=== PATIENT | female | born 1985 | race Caucasian/White ===

== ENCOUNTER → 2022-01-01 | Outpatient (CLI) | payer OTHER, SELFPAY | END | disposition home or self-care (01) | LOC: LABSPEC 14:13 | PROVIDERS: Visit Provider Obstetrics & Gynecology | DX: Z03.818 Encounter for observation for suspected exposure to other biological agents ruled out (principal) | CPT/HCPCS: 87635; U0003; U0005 ==

== ENCOUNTER 2022-01-06 08:50 | Inpatient (IN) | payer OTHER, SELFPAY ==
--- NOTE | 2022-01-05 11:36 | HP.PCM_ITS ---
History and Physical Date of Admission: 01/06/22 ACOG ANTEPARTUM RECORD - HISTORY AND PHYSICAL (01/05/2022) Name: JOSHUA LOPEZ History of this : This is a 36 year old [id number] presents at 39weeks gestation. OB Physician: Manan Morrow MD [place]'s Physician: PED LIBRARY ATTENDANT ...................................................................... : 1985 Age: 36 Address: [address] [place] [address] Phone: (h) [phone] ([phone] Insurance Carrier: [facility] [id number] Emergency Contact: DI LOPEZ [phone] ...................................................................... Final JADE: 01/13/22 By Ultrasound: 9 weeks 2 days PARITY: (G-Total Pregnancies P-Fullterm,Premature,Induced AB,Spont AB, Ectopics, Multiple,Living) JADE CONFIRMATION: By LMP: 04/08/21 Final JADE: 01/13/22 OB PROBLEM LIST: AMA - [id number] drawn. Carrier screening declined , office class encouraged Had Tdap vaccine Hx of depression/anxiety, past counseling and medications New FOB, this is his first baby One hour PG 160; declines 3 hour; will treat as presumptive GDM. Diabetic education. Prior --plan repeat with BPS Son has high functioning Autism Vaccinated for Covid ALLERGIES: No Known Allergies MEDICATIONS: ondansetron HCl 8 mg tablet take 1 tablet by mouth q 6 hrs prn nausea SOCIAL HISTORY: Smoking - Never Alcohol Use - denies drinking Diet - no special diet Lifestyle - Exercise - very active Employer - [employer] Job Description - [employer] Illicit Drug Use - denies use of street drugs Sexual Activity - [employer] Residence - owns a home Place of - [place], [place] Hours Worked - 40 hours per week Spouse-Sig Other Name - Di Lopez Spouse-Sig Other Occupation - Sale @ [employer] Spouse-Sig Other Phone No - [phone] Children Name(s) - Ortega Hendrix PRIOR DELIVERY HISTORY DEL DATE GEST LAB WT LB WT OZ TYPE ANES LABOR TX Feb 10 39 [phone] 15 C-Sec Spinal No ANTEPARTUM FLOW CHART VISIT GE RTC FU F F TN U U DATE WK MD WKS HT PN HR M SS BP ED WT TN GL D EF ST __ ____ ___ __ __ ___ __ __ __ ___ __ __ __ ___ __ December JMW 1 38 V + + 120/86 1+ 264 - - Nov JMW 1 37 + + 114/82 1+ 261 tr - Nov JMW 1 37 + + 120/68 sl 257 tr - ft hi Nov JMW 2 34 + + 130/78 sl 255 tr - 17 Nov 28 JMW 3 31 + + 130/80 sl 253 ne ne 23 Oct 28 JMW 3 28 + + 136/84 sl 252 - - Sep 22 JMW 4 23 + + 134/80 sl 239 - - Aug 18 JMW 4 20 + ? 120/82 235 tr - Jul 13 JMW 4 + 112/90 230 - ANTEPARTUM NOTE(S): Jan 01 2022: Headache, see note Dec 26 2021: Good FM Dec 19 2021: reactive NST Dec 05 2021: doing well Nov 14 2021: BS control good, Doing Well and Good FM Oct 23 2021: doing well, One Hr PG today Sep 18 2021: Good FM and US OK Aug 21 2021: comp u/s today Jul 10 2021: occ quickening, wants maternity 21 COMPREHENSIVE ANTEPARTUM NOTE(S): Jan 01 2022: Joshua is here at 38 w 2 d for her NST, followed by her Pre-Op appointment with Dr. Morrow. Blood sugars copied for review. She states that she is tired, and I've had a headache the last day or so. Headache is over her right eye and part of her forehead on right side. She states that Tylenol helps headache, but that it comes back after Tylenol has worn off. She reports that she has had headac Dec 31 2021: H taken to OB. tkg Dec 26 2021: Joshua is here for her NST at 37 w 3 d, she will see Dr. Morrow for a PNV after NST. She states that she is feeling tired, and ready to have this baby. She reports that she feels FM mostly at night. She denies spotting/LoF. 1+ non-pitting edema noted below knees, more on the right side. Her hands show slight edema. Encouraged to increase water intake, and resting when she gets home. She feels o Dec 19 2021: Joshua is here for visit. Relates that she has only felt 1 mvmt since 5 am this morning. NST done with active FM. GBS and LARC today. Dec 05 2021: Reviewed FM, discomforts. Recommend Tdap vaccine. LMT Nov 01 2021: Joshua is here for diabetic teaching for GDM at 29 w 4 d. She states that she is feeling good FM. She brought her glucometer/lancets/test strips with her today. She states that she is very emotional about GDM diagnosis, and has many questions. Questions answered and reassurance given. She is traveling to [place] for 5 days, and inquires about taking her blood sugar testing supplies on the plane, Oct 23 2021: Joshua is here for PNV 28w2d good FM sl Edema. no concerns today. 1hr GTT today. BR Sep 18 2021: Presents here today for PNV with Selvin. Good FM and Glucola/Instructions given. SALLY Aug 21 2021: Comp u/s today. She does ask questions about her age and risk factors. Has read a bit about complications. Reassured we do see many women in her age range who do very well. Further discussion with Dr PAEZ. LMT Jul 12 2021: NOB TELEHEALTH VISIT, 30 MINUTE DURATION. Joshua is a 35 year old with an JADE of 01/13/2022, current GA is 13 w 3 d. She resides with her , Di, and Ortega, her 8 year old son from a prior relationship. This is Di's first child, and she states that he is very excited. Joshua delivered her son by C/S for breech presentation. Past history updated. She plans to deliver b Jul 10 2021: Joshua here for her 13 week PNV. Pt doing well with no concerns or complaints. Medications and allergy's reviewed. BP is 112/90 today. She is concerned about the bottom number. Jun 12 2021: Joshua her for her missed menses. 35 year old. Here with her spouse. LMP 8/21. 9 weeks 2 days. No spotting. Nausea and breast tenderness. PHQ-2 score of 2. Non smoker. Medications and allergy added. CM Jun 12 2021: ok REVIEW OF SYSTEMS: GENERAL - Denies fever, or chills SKIN - Denies rash, new skin lesions, or change in moles EYES - Denies blurred vision, or change in visual acuity EARS - Denies ear pain, or difficulty hearing NOSE - Denies nasal congestion, discharge, or bleeding MOUTH - Denies sore throat, or difficulty swallowing NECK - Denies pain or swelling RESPIRATORY - Denies shortness of breath, cough, wheezing CARDIOVASCULAR - Denies palpitations, chest pain, orthopnea, PND, peripheral edema, syncope or claudication GASTROINTESTINAL - Denies nausea, vomiting, diarrhea, constipation, Denies abdominal pain, melena and or bright red blood GENITOURINARY - Denies dysuria, frequency of urination, urgency, or hesitancy MUSCULOSKELETAL - Denies joint or muscle pain, or back pain NEUROLOGICAL - Denies localized numbness, weakness, or tingling PSYCHIATRIC - Denies depression, anxiety, substance abuse or suicide attempts ENDOCRINE - Denies heat or cold intolerance, weight loss or gain, increasing thirst HEMATO-IMMUNOLOGIC - Denies easy bruising, bleeding, oral ulcerations or recurrent infections GENETICS SCREENING: Age 35+ years: Yes Thalassemia: No Neural Tube Defect: No Down Syndrome: No RENATO-SACHS: No Sickle Cell Disease: No Hemophilia: No Musc. Dystrophy: No Cystic Fibrosis: No-declines screening [place] Chorea: No Mental Retardation: No Fragile X: No Other genetic: No Other defects: No SABs/still births: No Drugs since LMP: No INFECTION HISTORY: High risk AIDS: No High risk Hepatitis: No Exposed to TB: No Exposed to Herpes: No Rash/viral illness since LMP: No History of STD: No MENSTRUAL HISTORY: PAST SUMMARY: PARITY: 1. Total Pregnancies............ 2 2. Full Term Pregnancies........ 1 3. Premature.................... 0 4. Abortions - Induced.......... 0 5. Abortions - Spontaneous...... 0 6. Ectopics..................... 0 7. Multiple Births.............. 0 8. Living Children.............. 1 PAST #1: Date of :.................. 02[birth year]03[birth year] Gestation Weeks:................ 39 Length of labor(hours):......... 0 Sex:............................ M Weight-lbs:............... 6 Weight-oz:................ 15 Type of Delivery:............... C-Sect Type of Anesthesia:............. Spinal Place of Delivery:.............. [place] Treatment of Labor?:.... No Comment: SROM, BREECH PHYSICAL EXAMINATION General Appearence: 36 yo female in no acute distress Vital Signs: AF, VSS Heart: RRR without rubs or gallops Lungs: CTA x 2 Breasts: deferred Abdomen: gravid Pelvis: Cervix: Presentation: cephalic Station: Fetus: Size: AGA Movement: present Heart: present LAB TEST(S) ORDERED SINCE:04/18/21 07/15/2021 [id number] PLUS CORE 06/19/2021 WRITTEN AUTHORIZATION 06/19/2021 INTERPRETATION: 06/19/2021 CBC/D/PLT+RPR+UA+RH+ABO+RUB... 06/15/2021 IGP,RFX APTIMA HPV ALL PTH 06/15/2021 CHLAMYDIA/GC AMPLIFICATION 01/01/2022 COVID 19, AUDIE WCH(RT COLLECT) 12/23/2021 STREP GP B CULTURE 10/25/2021 GEST. DIABETES 1-HR SCREEN 10/25/2021 CBC WITH DIFFERENTIAL/PLATELET == ==== Order Observation Description Value Ref_Range A* Site == ==== COVID 19, AUDIE NOTE RAMIREZ COVID 19, AUDIE COVID-19,AUDIE Not Detected Not Detect ML Normal Reference Range: Not Detected Method:(RT-PCR) real-time reverse transcriptase PCR [employer]ical Instrument *The Food and Drug Administration (FDA) has issued an Emergency Use Authorization (EAU) for the [employer] SARS-CoV-2 Assay for the rapid detection of the virus that causes COVID-19. This test has been validated, but the FDAs independent review of this validation is pending. *Negative results do not preclude infection and should not be used as the sole basis for treatment or patient management. Optimum specimen types and timing for peak viral levels during infections caused by SARS-CoV-2 have not been determined. Collection of multiple specimens from the same patient may be necessary to detect the virus. The possibility of a false negative result should be considered if the patient has clinical presentation or has had recent exposure. STREP GP B CULT STREP GP B CULTURE Negative Negative LC_CB Centers for Disease Control and Prevention (CDC) and [place] Congress of Obstetricians and Gynecologists (ACOG) guidelines for prevention of group B streptococcal (GBS) disease specify co-collection of a vaginal and rectal swab specimen to maximize sensitivity of GBS detection. Per the CDC and ACOG, swabbing both the lower vagina and rectum substantially increases the yield of detection compared with sampling the vagina alone. . Penicillin G, ampicillin, or cefazolin are indicated for intrapartum prophylaxis of GBS colonization. Reflex susceptibility testing should be performed prior to use of clindamycin only on GBS isolates from penicillin-allergic women who are considered a high risk for anaphylaxis. Treatment with vancomycin without additional testing is warranted if resistance to clindamycin is noted. CBC WITH DIFFER WBC 7.4 x10E3/uL 3.4-10.8 LC_CB CBC WITH DIFFER RBC 4.05 x10E6/uL 3.77-5.28 LC_CB CBC WITH DIFFER HEMOGLOBIN 12.4 g/dL 11.1-15.9 LC_CB CBC WITH DIFFER HEMATOCRIT 36.3 % 34.0-46.6 LC_CB CBC WITH DIFFER MCV 90 fL 79-97 LC_CB CBC WITH DIFFER MCH 30.6 pg 26.6-33.0 LC_CB CBC WITH DIFFER MCHC 34.2 g/dL 31.5-35.7 LC_CB CBC WITH DIFFER RDW 12.9 % 11.7-15.4 LC_CB CBC WITH DIFFER PLATELETS 312 x10E3/uL 150-450 LC_CB CBC WITH DIFFER NEUTROPHILS 61 % Not Estab. LC_CB CBC WITH DIFFER LYMPHS 25 % Not Estab. LC_CB CBC WITH DIFFER MONOCYTES 9 % Not Estab. LC_CB CBC WITH DIFFER EOS 2 % Not Estab. LC_CB CBC WITH DIFFER BASOS 1 % Not Estab. LC_CB CBC WITH DIFFER IMMATURE CELLS LC_CB CBC WITH DIFFER NEUTROPHILS (ABSOLUTE) 4.5 x10E3/uL 1.4-7.0 LC_CB CBC WITH DIFFER LYMPHS (ABSOLUTE) 1.8 x10E3/uL 0.7-3.1 LC_CB CBC WITH DIFFER MONOCYTES(ABSOLUTE) 0.7 x10E3/uL 0.1-0.9 LC_CB CBC WITH DIFFER EOS (ABSOLUTE) 0.2 x10E3/uL 0.0-0.4 LC_CB CBC WITH DIFFER BASO (ABSOLUTE) 0.1 x10E3/uL 0.0-0.2 LC_CB CBC WITH DIFFER IMMATURE GRANULOCYTES 2 % Not Estab. LC_CB CBC WITH DIFFER IMMATURE GRANS (ABS) 0.2 x10E3/uL 0.0-0.1 H LC_CB (An elevated percentage of Immature Granulocytes has not been found to be clinically significant as a sole clinical predictor of disease. Does NOT include bands or blast cells. associated physiological leukocytosis may also show increased immature granulocytes without clinical significance.) CBC WITH DIFFER NRBC LC_CB CBC WITH DIFFER HEMATOLOGY COMMENTS: LC_CB GEST. DIABETES GESTATIONAL DIABETES SCR 160 mg/dL 65-139 H LC_CB According to ADA, a glucose threshold of >139 mg/dL after 50-gram load identifies approximately 80% of women with gestational diabetes mellitus, while the sensitivity is further increased to approximately 90% by a threshold of >129 mg/dL. [id number] PLUS GESTATION [place] LC_SEQCA [id number] PLUS FRACTION 8% LC_SEQCA [id number] PLUS GESTATIONAL AGE > OR = 9 Yes LC_SEQCA [id number] PLUS TEST RESULT Negative LC_SEQCA [id number] PLUS SUPERVISOR MIXING COMMENTS LC_SEQCA This specimen showed an expected representation of chromosome 21, 18 and 13 material. Clinical correlation is suggested. [id number] PLUS APPROVED BY LC_SEQCA Alber Overton MD, PhD, Director, [employer] [id number] PLUS TRISOMY 21 (DOWN SYNDROM Negative LC_SEQCA [id number] PLUS TRISOMY 18 (GASTON SYND Negative LC_SEQCA [id number] PLUS TRISOMY 13 (PATAU SYNDRO Negative LC_SEQCA [id number] PLUS SEX LC_SEQCA Consistent with Male [id number] PLUS NEGATIVE PREDICTIVE VALU Note LC_SEQCA The Negative Predictive Value (NPV) for trisomy 21, 18, and 13 is greater than 99%. The NPV for SCA and ESS cannot be calculated as SCA and ESS are only reported when an abnormality is detected. [id number] PLUS POSITIVE PREDICTIVE VALU N/A LC_SEQCA [id number] PLUS ABOUT THE TEST LC_SEQCA The MaterniT(R) 21 PLUS laboratory-developed test (LDT) analyzes circulating cell-free DNA from a maternal blood sample. The test is indicated for use in women with increased risk for chromosomal aneuploidy. Validation data on twin pregnancies is limited and the ability of this test to detect aneuploidy in a triplet has not yet been validated. [id number] PLUS TEST METHOD LC_SEQCA Circulating cell-free DNA was purified from the plasma component of maternal blood. The extracted DNA was then converted into a genomic DNA library for aneuploidy analysis of chromosomes 21, 18, and 13 via next generation sequencing.[1] Optional findings based on the test order include sex chromosome aneuploidy (SCA)[2], and enhanced sequencing series (ESS)[3], which will only be reported on as an additional finding when an abnormality is detected. SCA testing includes information on X and Y representation, while ESS testing includes deletions in selected regions (22q, 15q, 11q, 8q, 5p, 4p, 1p) and trisomy of chromosomes 16 and 22. [id number] PLUS PERFORMANCE LC_SEQCA The performance characteristics of the MaterniT(R) 21 PLUS laboratory-developed test (LDT) have been determined in a clinical validation study with women at increased risk for chromosomal aneuploidy.[1],[2],[3],[4] [id number] PLUS PERFORMANCE CHARACTERIST Note LC_SEQCA ! Y-Chromosome ( Sex) ! Accuracy: 99.4% ! ! ! ! Region (associated syndrome) ! Est. Sens# ! Est. Spec ! ! ! ! Trisomy 21 (Down Syndrome) ! 99.1% ! 99.9% ! ! ! ! Trisomy 18 (Gaston Syndrome) ! >99.9% ! 99.6% ! ! ! ! Trisomy 13 (Patau Syndrome) ! 91.7% ! 99.7% ! ! ! ! Sex Chromosome Aneuploidies## ! 96.2% ! 99.7% ! ! ! * As reported in [facility] database [id number] [[email or web address] ] # Estimated Sensitivity. Sensitivity estimated across the observed size distribution of each syndrome [per [facility] database nstd37] and across the range of fractions observed in routine clinical NIPT. Actual sensitivity can also be influenced by other factors such as the size of the event, total sequence counts, amplification bias, or sequence bias. ## [place] gestation only. [id number] PLUS LIMITATIONS OF THE TEST LC_SEQCA While the results of these tests are highly accurate, discordant results, including inaccurate sex prediction, may occur due to placental, maternal, or mosaicism or neoplasm; vanishing twin; prior maternal organ transplant; or other causes. Sex chromosomal aneuploidies are not reportable for known multiple gestations. These tests are screening tests and not diagnostic; they do not replace the accuracy and precision of diagnosis with CVS or amniocentesis. A patient with a positive test result should be referred for genetic counseling and offered invasive diagnosis for confirmation of test results.[5] A negative result does not ensure an unaffected nor does it exclude the possibility of other chromosomal abnormalities or defects which are not a part of these tests. An uninformative result may be reported, the causes of which may include, but are not limited to, insufficient sequencing coverage, noise or artifacts in the region, amplification or sequencing bias, or insufficient fraction. These tests are not intended to identify pregnancies at risk for neural tube defects or ventral wall defects. Testing for whole chromosome abnormalities (including sex chromosomes) and for subchromosomal abnormalities could lead to the potential discovery of both and maternal genomic abnormalities that could have major, minor, or no, clinical significance. Evaluating the significance of a positive or a non-reportable result may involve both invasive testing and additional studies on the mother. Such investigations may lead to a diagnosis of maternal chromosomal or subchromosomal abnormalities, which on occasion may be associated with benign or malignant maternal neoplasms. These tests may not accurately identify triploidy, balanced rearrangements, or the precise location of subchromosomal duplications or deletions; these may be detected by diagnosis with CVS or amniocentesis. The ability to report results may be impacted by maternal BMI, maternal weight, maternal systemic lupus erythematosus (SLE) and/or by certain pharmaceutical agents such as low molecular weight heparin (for example: Lovenox(R), Xaparin(R), Clexane(R) and Fragmin(R)). The results of this testing, including the benefits and limitations, should be discussed with a qualified healthcare provider. management decisions, including termination of the , should not be based on the results of these tests alone. The healthcare provider is responsible for the use of this information in the management of their patient. [id number] PLUS NOTE LC_SEQCA This test was developed and its performance characteristics determined by [facility]. It has not been cleared or approved by the Food and Drug Administration. This laboratory is certified under the Clinical Laboratory Improvement Amendments (CLIA) as qualified to perform high complexity clinical laboratory testing and accredited by the College of [place] Pathologists (CAP). If there is future clinical need for adding MaterniT GENOME testing, this specimen will be available until term. [facility] samples will not be retained beyond 60 days. [facility] patients will have to send a new sample for re-sequencing ([facility] Test Code: 252961). [id number] PLUS REFERENCES LC_SEQCA 1. Aldo RODRIGUEZ, et al. [place] Med. 2012;14(3):296-305. 2. Guerline ROJAS, et al. Prenat Diag. 2013;33(6):591-597. 3. Fareed C, et al. Clin Chem. 2015 Apr;61(4):608-616. 4. Aldo RODRIGUEZ, et al. [place] Med. 2011;13(11):913-920. 5. ACOG/SMFM Joint Committee Opinion No. 545, Jul 2012. [id number] PLUS PDF . LC_SEQCA CBC/D/PLT+RPR+U TSH 1.660 uIU/mL 0.450-4.500 LC_CB Reference Interval : First Trimester 0.100 - 4.000 Second Trimester 0.200 - 4.000 Third Trimester 0.300 - 4.000 . Non- Adult 0.450 - 4.500 CBC/D/PLT+RPR+U HBSAG SCREEN Negative Negative LC_CB CBC/D/PLT+RPR+U HCV AB <0.1 s/co ratio 0.0-0.9 LC_CB CBC/D/PLT+RPR+U RPR Non Reactive Non Reactive LC_CB CBC/D/PLT+RPR+U RUBELLA ANTIBODIES, IGG 20.70 index Immune >0.99 LC_CB Non-immune <0.90 Equivocal 0.90 - 0.99 Immune >0.99 CBC/D/PLT+RPR+U ABO GROUPING O LC_CB CBC/D/PLT+RPR+U RH FACTOR Positive LC_CB Please note: Prior records for this patient's ABO / Rh type are not available for additional verification. CBC/D/PLT+RPR+U ANTIBODY SCREEN Negative Negative LC_CB CBC/D/PLT+RPR+U HIV SCREEN 4TH GENERATIO Non Reactive Non Reactive LC_CB CBC/D/PLT+RPR+U WBC 7.8 x10E3/uL 3.4-10.8 LC_CB CBC/D/PLT+RPR+U RBC 4.79 x10E6/uL 3.77-5.28 LC_CB CBC/D/PLT+RPR+U HEMOGLOBIN 14.1 g/dL 11.1-15.9 LC_CB CBC/D/PLT+RPR+U HEMATOCRIT 44.5 % 34.0-46.6 LC_CB CBC/D/PLT+RPR+U MCV 93 fL 79-97 LC_CB CBC/D/PLT+RPR+U MCH 29.4 pg 26.6-33.0 LC_CB CBC/D/PLT+RPR+U MCHC 31.7 g/dL 31.5-35.7 LC_CB CBC/D/PLT+RPR+U RDW 13.1 % 11.7-15.4 LC_CB CBC/D/PLT+RPR+U PLATELETS 347 x10E3/uL 150-450 LC_CB CBC/D/PLT+RPR+U NEUTROPHILS 66 % Not Estab. LC_CB CBC/D/PLT+RPR+U LYMPHS 26 % Not Estab. LC_CB CBC/D/PLT+RPR+U MONOCYTES 7 % Not Estab. LC_CB CBC/D/PLT+RPR+U EOS 1 % Not Estab. LC_CB CBC/D/PLT+RPR+U BASOS 0 % Not Estab. LC_CB CBC/D/PLT+RPR+U IMMATURE CELLS LC_CB CBC/D/PLT+RPR+U NEUTROPHILS (ABSOLUTE) 5.1 x10E3/uL 1.4-7.0 LC_CB CBC/D/PLT+RPR+U LYMPHS (ABSOLUTE) 2.1 x10E3/uL 0.7-3.1 LC_CB CBC/D/PLT+RPR+U MONOCYTES(ABSOLUTE) 0.5 x10E3/uL 0.1-0.9 LC_CB CBC/D/PLT+RPR+U EOS (ABSOLUTE) 0.1 x10E3/uL 0.0-0.4 LC_CB CBC/D/PLT+RPR+U BASO (ABSOLUTE) 0.0 x10E3/uL 0.0-0.2 LC_CB CBC/D/PLT+RPR+U IMMATURE GRANULOCYTES 0 % Not Estab. LC_CB CBC/D/PLT+RPR+U IMMATURE GRANS (ABS) 0.0 x10E3/uL 0.0-0.1 LC_CB CBC/D/PLT+RPR+U NRBC LC_CB CBC/D/PLT+RPR+U HEMATOLOGY COMMENTS: LC_CB CBC/D/PLT+RPR+U SPECIFIC GRAVITY 1.008 1.005-1.030 LC_CB CBC/D/PLT+RPR+U PH 6.0 5.0-7.5 LC_CB CBC/D/PLT+RPR+U URINE-COLOR Yellow Yellow LC_CB CBC/D/PLT+RPR+U APPEARANCE Clear Clear LC_CB CBC/D/PLT+RPR+U WBC ESTERASE Negative Negative LC_CB CBC/D/PLT+RPR+U PROTEIN Negative Negative/Trace LC_CB CBC/D/PLT+RPR+U GLUCOSE Negative Negative LC_CB CBC/D/PLT+RPR+U KETONES 2+ Negative A LC_CB CBC/D/PLT+RPR+U OCCULT BLOOD Negative Negative LC_CB CBC/D/PLT+RPR+U BILIRUBIN Negative Negative LC_CB CBC/D/PLT+RPR+U UROBILINOGEN,SEMI-QN 0.2 mg/dL 0.2-1.0 LC_CB CBC/D/PLT+RPR+U NITRITE, URINE Negative Negative LC_CB CBC/D/PLT+RPR+U MICROSCOPIC EXAMINATION LC_CB Microscopic not indicated and not performed. CBC/D/PLT+RPR+U URINE CULTURE, ROUTINE Final report A LC_CB CBC/D/PLT+RPR+U RESULT 1 Escherichia coli A LC_CB Cefazolin <=4 ug/mL Cefazolin with an JUSTIN <=16 predicts susceptibility to the oral agents cefaclor, cefdinir, cefpodoxime, cefprozil, cefuroxime, cephalexin, and loracarbef when used for therapy of uncomplicated urinary tract infections due to E. coli, Klebsiella pneumoniae, and Proteus mirabilis. Greater than 100,000 colony forming units per mL CBC/D/PLT+RPR+U ANTIMICROBIAL SUSCEPTIBI LC_CB S = Susceptible; I = Intermediate; R = Resistant P = Positive; N = Negative MICS are expressed in micrograms per mL Antibiotic RSLT#1 RSLT#2 RSLT#3 RSLT#4 Amoxicillin/Clavulanic Acid I Ampicillin R Cefepime S Ceftriaxone S Cefuroxime S Ciprofloxacin S Ertapenem S Gentamicin S Imipenem S Levofloxacin S Meropenem S Nitrofurantoin S Piperacillin/Tazobactam S Tetracycline S Tobramycin S Trimethoprim/Sulfa S INTERPRETATION: INTERPRETATION: LC_CB Negative Not infected with HCV, unless recent infection is suspected or other evidence exists to indicate HCV infection. WRITTEN AUTHORI WRITTEN AUTHORIZATION LC_CB Written Authorization Received. Authorization received from ORIGINAL ORDER 06-13-2021 Logged by Maci Fowler IGP,RFX APTIMA DIAGNOSIS: LC_WB NEGATIVE FOR INTRAEPITHELIAL LESION OR MALIGNANCY. IGP,RFX APTIMA SPECIMEN ADEQUACY: LC_WB Satisfactory for evaluation. Endocervical and/or squamous metaplastic cells (endocervical component) are present. IGP,RFX APTIMA CLINICIAN PROVIDED ICD10 LC_WB Z12.4 Z11.3 IGP,RFX APTIMA PERFORMED BY: LC_WB Bekah Kaur, Certified Prosthetist/Orthotist (ASCP) IGP,RFX APTIMA . . LC_WB IGP,RFX APTIMA NOTE: LC_WB The Pap smear is a screening test designed to aid in the detection of premalignant and malignant conditions of the uterine cervix. It is not a diagnostic procedure and should not be used as the sole means of detecting cervical cancer. Both false-positive and false-negative reports do occur. . IGP,RFX APTIMA TEST METHODOLOGY: LC_WB This liquid based ThinPrep(R) pap test was screened with the use of an image guided system. IGP,RFX APTIMA . LC_WB The HPV DNA reflex criteria were not met with this specimen result therefore, no HPV testing was performed. . CHLAMYDIA/GC AM CHLAMYDIA TRACHOMATIS, N Negative Negative LC_=G CHLAMYDIA/GC AM NEISSERIA GONORRHOEAE, N Negative Negative LC_=G Source.............Cervix;Endocervix LMP / Prev Treat...AAQ=[id number] Other.............. No. of containers..01 ThinPrep Vial No. of containers..01 Aptima Vaginal Swab ([place] Label) == ==== Impression /Plan: 30weeks gestation intrauterine for repeat C- section. Preparations in progress for delivery.
[2022-01-06] VITALS (19 sets, daily range): BP systolic 101–147; BP diastolic 46–83; PULSE 66–100; RESP 14–18; TEMP 35.9–36.8; O2SAT 95–100; BMI 45.6
--- NOTE | 2022-01-06 | FALS_PTH ---
PATIENT: JOSHUA MENESES LOC: [facility] U#:[id number] AGE/SX: 36/F ROOM: WP007 RE01/06/[address]: Dr. Manan Morrow MD : 1985 BED: 1 DIS: 01/09/2022 SPEC #: [id number] RECD: 01/06/22 13:37 STATUS: JANICE WEIR #: [id number] ANETA: 01/06/22 00:[address]: Manan Morrow DEPT: SURGICAL PATHOLOGY RECD BY: Dudley Marie Tissues: Fallopian tube Procedures: Surgery Specimen Level II HEADER OPERATION: Tubal ligation PRE-OP DIAGNOSIS: Sterilization TISSUE SUBMITTED: Fallopian tubes, right side with suture MICROSCOPIC DIAGNOSIS Bilateral fallopian tubes, salpingectomy: Bilateral fallopian tubes, no pathologic diagnosis. See comment. JAUN:ladan 01/08/2022 COMMENT Focal decidual changes are noted on the serosal surface left fallopian tube. MICROSCOPIC DESCRIPTION Slides are reviewed. GROSS DESCRIPTION Received in fixative is one container labeled with the patient's name and designated bilateral fallopian tubes, suture in right. The specimen consists of bilateral fallopian tubes including fimbrial ends. The right fallopian tube measures 9 cm in length and 0.5 cm in diameter and the left fallopian tube measures 8 cm in length and up to 1 cm in diameter. Sections reveal unremarkable cut surfaces. Claims Associate sections are submitted in two cassettes as follows: 1 ? right fallopian tube, 2 ? left fallopian tube. / SJ:rg 01/07/2022 TC:4 CPT: 00247 x2
[2022-01-06] MEDS: Lactated Ringers 1,000 ML 999 ML IV (09:28)
[2022-01-06 09:30] LABS: Bedside Glucose 85 mg/dL (74-106)
[2022-01-06 09:37] LABS: Absolute Neutrophil Count 4.6 X10^3/uL (2.0-7.7); Basophil# 0.03 X10^3/uL; Basophil% 0.4 % (0-1); Eosinophil# 0.18 X10^3/uL; Eosinophils% 2.4 % (0-5); Hematocrit 39.2 % (37-47); Lymphocyte % 25.7 % (19-41); Mean Corp Hgb Conc 33.2 g/dL (32-36); Mean Corpuscular Volume 90.3 fL (81-99); Monocyte# 0.63 X10^3/uL; Monocyte% 8.5 % (0-10); NRBC Flagged by Analyzer 0 % (0-5); Neutrophil # 4.59 X10^3/uL (2.7-7.7); Neutrophil % 62.3 % (47-70); Platelet Count 246 K/mm3 (150-450); RBC Distribution Width CV 14.3 % (11.6-14.6); RBC Distribution Width SD 46.6 fl (35.1-43.9); Red Blood Count 4.34 M/mm3 (4.2-5.4); White Blood Count 7.4 K/mm3 (4.4-11.0)
[2022-01-06] MEDS: Lactated Ringers 1,000 ML 150 ML IV (10:20)
[2022-01-06] MEDS: Acetaminophen 500 MG Tablet 1000 MG PO ×3 (10:21→22:26)
[2022-01-06] MEDS: Sodium Citrate/Citric Acid 30 ML UDC PO (10:28)
--- NOTE | 2022-01-06 11:04 | OP.PCM_ITS ---
Maternal Data Information Final JADE: 01/13/22 Final JADE Source: US <20 weeks Gestational age: 39 weeks 0-day gestation Details Operative Information Date of Procedure: 01/06/22 Pre-Operative Diagnosis: Prior Section, Desires Permanent Sterilization Post-Operative Diagnosis: Prior Section, Desires Permanent Sterilization Classification: Scheduled Procedure Type: low transverse (And bilateral salpingectomy) choir teacher #1: Gissell Che Type of Anesthesia: Spinal (With Duramorph) Anesthesiologist: Miranda Tarango Antibiotic Given: Ancef 2 grams IV x1 Estimated Blood Loss: 500 cc Fluids Replaced: Crystalloid Findings Description of Procedure: Surgeon: Manan Morrow MD, FACOG Procedure: Repeat Low Transverse Cervical Caesarean Section And Bilateral Salpingectomy Findings: Viable male infant with Apgars of 8/9 in occiput anterior presentation with clear amniotic fluid and normal three-vessel placenta. Indication: This is a 36-year-old who presents for her second at 39 weeks gestation. care has otherwise been uneventful. The patient has been counseled regarding the risk and indications of this procedure including the possibility of bleeding infection and injury to surrounding structures such as bowel bladder. She also understands the permanent nature of sterilization, the availability of other nonpermanent control options, and the failure rate of approximately 1%. All questions were answered. Procedure: Patient was taken to the operating room where after spinal anesthesia was placed, the patient was prepped and draped in usual sterile fashion and a Odom catheter was placed. The abdomen was entered through the patient's prior Pfannenstiel incision and peritoneum was entered bluntly. After developing a bladder flap on the lower uterine segment a low transverse incision was made on the uterus and head was easily delivered onto the operative field the nose mouth and oropharynx were bulb suctioned. Subsequently a viable male infant was born with Apgars of 8/9. The infant was noted to cry move all extremities vigorously on the operative field. The umbilical cord was doubly clamped and ligated and handed to the nursery personnel who were present for the delivery. Placenta was delivered and noted to be 3 vessels and normal. Uterus was exteriorized and remaining placental tissue was removed. The uterus was then closed in 2 layers first with running locked 0 Vicryl suture followed by a second imbricating layer with 0 Vicryl suture. 0 Vicryl suture was then used in a horizontal mattress interrupted fashion to affect final hemostasis of the uterine incision line. Normal fallopian tubes and ovaries were visualized and then removed with the LigaSure device. The uterus was returned to the pelvis. Hemostasis was noted and rectus abdominis muscles were reapproximated in the midline with interrupted Number 0 Vicryl suture in a horizontal mattress fashion. Fascia was closed with running Number 1 PDS Strata fix suture. Subcutaneous tissue was irrigated with copious amounts of saline solution and then closed with running 3-0 Vicryl suture. Skin was closed with 4-0 monocryl suture in a running subcuticular fashion. Steri strips and a Mepilex dressing were placed across the incision. The patient tolerated the procedure well and was taken to the recovery room in satisfactory condition. Sponge, needle, and instrument counts were all reportedly correct. EBL was less than 500 cc. Ancef 2 gms IV was given prior to the procedure. Spicemen to Pathology: Bilateral fallopian tubes Complications: None Presentation: Positive for Vertex Amniotic Fluid Description: Clear Placental Delivery Description: Spontaneous Placenta Disposition: [facility] Cord Vessel Description: 3 Vessels Cord Entanglement: None A Gender: Male (1 minute): 8 (5 minute): 9 Complications Risks of Surgery Discussed w/Patient: Bleeding, Infection, Permanency, Failure Rate of 1 to 2%, Injury to surrounding structure(s) including bowel and bladder and Availability of other non-permanent control options Complications: None
[2022-01-06] MEDS: Cefazolin 2 GM in 0.9% Normal Saline 100 ML IV (11:05)
[2022-01-06] MEDS: Oxytocin 30 units/NS 500 ml 30 UNITS/500 ML IV.SOLN 167 UNITS IV (12:57)
[2022-01-06] MEDS: Ketorolac 30 MG/ML Syringe IV ×2 (13:15→18:48)
[2022-01-06 13:37] LABS: Pathology Specimen OB SEE PATHOLOGY REPORT
[2022-01-06 14:25] LABS: Bedside Glucose 90 mg/dL (74-106)
[2022-01-06] MEDS: Ondansetron 4 MG/2 ML Vial IV (14:25)
[2022-01-06] MEDS: Lactated Ringers 1,000 ML 100 ML IV (15:30)
[2022-01-06] MEDS: proCHLORPERazine 10 MG/2 ML Vial IV (15:42)
[2022-01-06] MEDS: Cefazolin 1 GM/50 ML BAG IV (18:53)
[2022-01-06] MEDS: Enoxaparin 40 MG/0.4 ML Syringe SC (23:27)
[2022-01-07] VITALS (8 sets, daily range): BP systolic 114–130; BP diastolic 57–81; PULSE 72–98; RESP 14–18; TEMP 36.1–36.9; O2SAT 95–99
[2022-01-07] MEDS: Ketorolac 30 MG/ML Syringe IV ×2 (01:01→06:22)
[2022-01-07] MEDS: Cefazolin 1 GM/50 ML BAG IV (02:54)
[2022-01-07] MEDS: Acetaminophen 500 MG Tablet 1000 MG PO ×4 (04:10→22:29)
--- NOTE | 2022-01-07 05:57 | NURSING ---
blood sugar drawn at this time, glucometer was not scanning pt band correctly. blood sugar was 92 at this time.
[2022-01-07 06:06] LABS: Bedside Glucose 92 mg/dL (74-106)
[2022-01-07 06:12] LABS: Hematocrit 34.9 % (37-47); Hemoglobin 11.7 g/dL (12.0-15.0); Mean Corp Hgb Conc 33.5 g/dL (32-36); Mean Corpuscular Hgb 30.6 pg (27.0-32.0); Mean Corpuscular Volume 91.4 fL (81-99); Mean Platelet Vol. 8.8 fl (6.2-12.0); Platelet Count 206 K/mm3 (150-450); RBC Distribution Width CV 14.4 % (11.6-14.6); RBC Distribution Width SD 47.8 fl (35.1-43.9); Red Blood Count 3.82 M/mm3 (4.2-5.4); White Blood Count 9.7 K/mm3 (4.4-11.0)
--- NOTE | 2022-01-07 07:36 | PCM.PN.OB ---
Subjective Subjective She is sore this morning. OOB, tolerates PO with nausea resolved. Passing flatus. Objective Data Objective Data Vital Signs: Vital Signs Temp Pulse Resp BP Pulse Ox 97.0 F L 72 14 115/68 99 01/07/22 05:51 01/07/22 05:51 01/07/22 05:51 01/07/22 05:51 01/07/22 02:52 Oxygen Delivery Method Room Air Weight: 120.6 kg Body Mass Index (BMI) 45.6 Intake & Output: Intake and Output for Last 24 Hours 01/05/22 01/06/22 01/07/22 23:59 23:59 23:59 Intake Total 2865.62 / 2865.62 1050 / 1050 Output Total 550 / 550 150 / 150 Balance 2315.62 / 2315.62 900 / 900 Lab / Micro Data Result Diagrams: 01/07/22 05:00 Labs: Laboratory Results - last 24 hr 01/06/22 09:15: WBC 7.4, RBC 4.34, Hgb 13.0, Hct 39.2, MCV 90.3, MCH 30.0, MCHC 33.2, RDW Std Deviation 46.6 H, RDW Coeff of Zainab 14.3, Plt Count 246, MPV 9.0, Immature Gran % (Auto) 0.700, Neut % (Auto) 62.3, Lymph % (Auto) 25.7, [place] % (Auto) 8.5, Eos % (Auto) 2.4, Baso % (Auto) 0.4, Absolute Neuts (auto) 4.6, Absolute Lymphs (auto) 1.90, Nucleated RBC % 0 01/06/22 09:15: Blood Type O POSITIVE, Antibody Screen NEGATIVE 01/06/22 09:22: POC Glucose 85 01/06/22 14:16: POC Glucose 90 01/07/22 05:00: WBC 9.7, RBC 3.82 L, Hgb 11.7 L, Hct 34.9 L, MCV 91.4, MCH 30.6, MCHC 33.5, RDW Std Deviation 47.8 H, RDW Coeff of Zainab 14.4, Plt Count 206, MPV 8.8 01/07/22 05:56: POC Glucose 92 Physical Exam Const alert, oriented x3 and no apparent distress Resp normal respiratory effort, normal air movement and clear to auscultation bilaterally Cardio regular rate, regular rhythm, S1 normal heart sound and S2 normal heart sound GI normal to inspection, nondistended, normoactive bowel sounds, soft to palpation, non-tender and non-distended GI Narrative: incisional dressing c/d/i Narrative: Fundus firm and nontender, lochia scant Manual OB Exam: other lochia scant Uterus Palpation: uterus fundus firm Extremity no calf tenderness Extremity Narrative: trace b/l LE edema Assessment & Plan (1) delivery delivered: PLAN: POD#1 doing well O positive Routine postop care support - Plan for d/c home tomorrow
[2022-01-07] MEDS: Senna/Docusate Sodium 1 Tablet PO (10:16)
[2022-01-07] MEDS: Enoxaparin 40 MG/0.4 ML Syringe SC (10:17)
[2022-01-07] MEDS: Ibuprofen 600 MG Tablet PO ×3 (12:29→23:56)
[2022-01-08 02:50] VITALS: BP 123/67; PULSE 74; RESP 18; TEMP 36.7; O2SAT 96
[2022-01-08] MEDS: Acetaminophen 500 MG Tablet 1000 MG PO ×4 (04:39→22:08)
[2022-01-08] MEDS: Ibuprofen 600 MG Tablet PO ×3 (06:08→18:08)
--- NOTE | 2022-01-08 07:05 | NURSING ---
Pt. verbalizing moderate to severe anxiety overnight about discharge. Pt. has been more independent overnight but requires a lot of emotional support. Pt. reported anxiety about going home and how she will breastfeed and care for without nursing help. 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
[2022-01-08 07:46] VITALS: BP 115/77; PULSE 72; RESP 14; TEMP 36.2
--- NOTE | 2022-01-08 08:59 | PCM.PN.OB ---
Subjective Subjective Patient without complaints. Tolerating diet well. Positive flatus. Pain well controlled on NSAIDs and Tylenol. Wants to stay for another day or 2. Objective Data Objective Data Vital Signs: Vital Signs Temp Pulse Resp BP Pulse Ox 97.2 F L 72 14 115/77 96 01/08/22 07:46 01/08/22 07:46 01/08/22 07:46 01/08/22 07:46 01/08/22 02:50 Oxygen Delivery Method Room Air Weight: 265 lb 14.04 oz Body Mass Index (BMI) 45.6 Intake & Output: Intake and Output for Last 24 Hours 01/06/22 01/07/22 01/08/22 23:59 23:59 23:59 Intake Total 2865.62 / 2865.62 1050 / 1050 Output Total 550 / 550 450 / 450 Balance 2315.62 / 2315.62 600 / 600 Lab / Micro Data Result Diagrams: 01/07/22 05:00 Assessment & Plan (1) delivery delivered: PLAN: Doing well postoperative day #2 status post routine repeat and tubal. Continuing present care.
[2022-01-08] MEDS: Enoxaparin 40 MG/0.4 ML Syringe SC (10:15)
[2022-01-08] MEDS: Senna/Docusate Sodium 1 Tablet PO (10:15)
[2022-01-08 14:00] VITALS: BP 141/72; PULSE 72; RESP 14; TEMP 36.1
[2022-01-08 19:46] VITALS: BP 139/79; PULSE 86; RESP 18; TEMP 36.2
[2022-01-08] MEDS: oxyCODONE 5 MG Tablet PO (20:17)
[2022-01-09] MEDS: Ibuprofen 600 MG Tablet PO ×3 (00:03→12:58)
[2022-01-09 01:57] VITALS: BP 131/68; PULSE 82; RESP 18; TEMP 35.9
[2022-01-09] MEDS: Acetaminophen 500 MG Tablet 1000 MG PO ×3 (04:16→15:59)
[2022-01-09 08:10] VITALS: BP 142/82; PULSE 66; RESP 16; TEMP 35.9
--- NOTE | 2022-01-09 08:21 | PCM.DC.BLA ---
Discharge Summary Date of Admission: 01/05/22 Date of Discharge: 01/09/22 Summary: Patient arrived on 01/05/2022 with repeat section bilateral tubal ligation. Routine recovery. Discharge home on 01/09/2022 Meaningful Use Info Meaningful Use Diagnoses (Choose all that apply): None applicable Discharge Plan Admission Admit Date/Time: 01/06/22 08:50 Primary Reason for Your Visit: Repeat section bilateral tubal ligation Attending Provider: Manan Morrow Instructions Additional Instructions / Restrictions: No lifting over 25 pounds for 2 to 3 weeks. No tub baths. Okay to shower. Regular diet. No intercourse in 4 to 6 weeks. Call if fevers, chills, chest pain, shortness of breath. Follow-up 2 weeks postoperative, 4 to 6 weeks Discharge Orders/Prescriptions Prescriptions: New oxycodone 5 mg Tablet 5 mg PO Q6H PRN PRN (Reason: Pain Score 7-10) 4 Days Qty: 16 RF: 0 Continued Prenatabs FA 29-1 mg Tablet 1 tab PO DAILY RF: 0 Referrals / Follow Up: MARIAN MARCANO [Other] Disposition Discharge Orders: Discharge Patient (Routine); Ordered 01/09/22 Ordered By: Dr. Dg Armendariz
--- NOTE | 2022-01-09 08:23 | PCM.PN.OB ---
Subjective Subjective Pain well controlled Objective Data Objective Data Vital Signs: Vital Signs Temp Pulse Resp BP Pulse Ox 96.7 F L 82 18 131/68 H 96 01/09/22 01:57 01/09/22 01:57 01/09/22 01:57 01/09/22 01:57 01/08/22 02:50 Oxygen Delivery Method Room Air Weight: 265 lb 14.04 oz Body Mass Index (BMI) 45.6 Intake & Output: Intake and Output for Last 24 Hours 01/07/22 01/08/22 01/09/22 23:59 23:59 23:59 Intake Total 1050 / 1050 Output Total 450 / 450 Balance 600 / 600 Lab / Micro Data Result Diagrams: 01/07/22 05:00 Physical Exam Const alert, oriented x3, no apparent distress, average body habitus, healthy appearing and well nourished HEENT normocephalic and moist oral mucous membranes Head and Scalp: atraumatic Face and Sinus: normal facial exam Neck full ROM Resp normal respiratory effort, no retractions and no use of accessory muscles GI GI Narrative: Bandage clean dry and intact Extremity normal to inspection, full ROM and no clubbing, cyanosis or edema Psych mental status grossly normal, affect normal, speech normal and activity/motor behavior normal Assessment & Plan (1) delivery delivered: PLAN: Postoperative day 4 status post repeat section bilateral tubal ligation. Pain well controlled. Okay to discharge home today
[2022-01-09] MEDS: Senna/Docusate Sodium 1 Tablet PO (09:53)
[2022-01-09] MEDS: Enoxaparin 40 MG/0.4 ML Syringe SC (09:54)
[2022-01-09 14:24] VITALS: BP 135/74; PULSE 66; RESP 16; TEMP 36.4
[2022-01-09] MEDS: oxyCODONE 5 MG Tablet PO (15:02)
== END 2022-01-09 16:05 | disposition home or self-care (01) | DRG 785 ==
PROVIDERS: Admitting Provider Obstetrics & Gynecology; Visit Provider Obstetrics & Gynecology
PROC: 0UT70ZZ Resection of Bilateral Fallopian Tubes, Open Approach (ICD-10-PCS; CPT 59514; principal; 2022-01-06 11:45)
DX: O34.211 Maternal care for low transverse scar from previous cesarean delivery (principal); O24.420 Gestational diabetes mellitus in childbirth, diet controlled; Z30.2 Encounter for sterilization; Z3A.39 39 weeks gestation of pregnancy; Z37.0 Single live birth
CPT/HCPCS: 59050; 82962; 85025; 85027; 86850; 86900; 86901; 88302; 99218; 99251; J7120; G0378; G0463; J2405

== ENCOUNTER 2022-01-13 09:46 | Observation (INO) | payer OTHER, SELFPAY ==
[2022-01-12] VITALS (108 sets, daily range): BP systolic 137–184; BP diastolic 66–96; PULSE 62–115; RESP 16–20; TEMP 36.7–37.2; O2SAT 84–96; BMI 45.6
--- NOTE | 2022-01-12 13:50 | CT_ITS ---
STUDY: CTA CHEST REASON FOR EXAM: Female, 36 years old. shortness of breath -- r/o pulmonary embolism or edema, signs of CHF RADIATION DOSAGE (If Supplied By Facility): CTDIvol = ( 13.85 ) mGy, DLP = ( 490.68 ) mGycm TECHNIQUE: The examination was performed with the intravenous administration of IV 100mL Isovue-370. Post-processing of the angiographic images was performed, with multiplanar reformation and 3D reconstruction. Individualized dose optimization techniques were used for this CT. COMPARISON: None. FINDINGS: Normal enhancement of the main pulmonary artery and right and left pulmonary arteries. Normal enhancement of the bilateral peripheral pulmonary arteries. There is no demonstrated pulmonary embolism. Normal thoracic aorta and visualized great vessels. There is no demonstrated aortic dissection. Normal heart and pericardium. Normal mediastinum. Normal hilar regions. Normal visualized trachea and bronchi. The lungs are well expanded. Bilateral pleural effusions with lower lobe consolidations.. Normal chest wall structures. Normal osseous structures. Normal visualized upper abdomen. CT/CTA Chest W/WO Contrast IMPRESSION: No demonstrated pulmonary embolism or arterial dissection. Bilateral pleural effusions and consolidations. Electronically Signed: Steven Germain DO at 21:00 EDT Reading Location ID and State: [facility] / [place] Tel [phone], Service support ,
[2022-01-12] MEDS: Lactated Ringers 1,000 ML 50 ML IV (14:20)
[2022-01-12] MEDS: Labetalol (Prefilled) 20 MG/4 ML IV (14:20)
[2022-01-12 14:28] LABS: Hematocrit 37.9 % (37-47); Hemoglobin 12.5 g/dL (12.0-15.0); Mean Corpuscular Hgb 30.3 pg (27.0-32.0); Mean Corpuscular Volume 91.8 fL (81-99); Mean Platelet Vol. 8.7 fl (6.2-12.0); Platelet Count 296 K/mm3 (150-450); RBC Distribution Width CV 14.4 % (11.6-14.6); RBC Distribution Width SD 48.2 fl (35.1-43.9); Red Blood Count 4.13 M/mm3 (4.2-5.4); White Blood Count 10.3 K/mm3 (4.4-11.0)
[2022-01-12] MEDS: Labetalol (Prefilled) 20 MG/4 ML 40 MG IV ×2 (14:37→17:45)
[2022-01-12 14:45] LABS: AST(SGOT) 47 U/L (15-37); Alanine Aminotransfer ALT/SGPT 74 U/L (13-56); Creatinine, Serum 2.19 mg/dL (0.55-1.02); EST Glomerular Filtration Rate 27 mL/min (>60); Est Glom Filt Rate - Afr Amer 32 mL/min (>60); Estimated Creatinine Clearance 30.37 ml/min; Protein, Urine (Random) 23.1 mg/dL (<11.9); Protein:Creat Ratio 397 mg/g CRE (0-200); Uric Acid 8.8 mg/dL (2.6-6.0)
[2022-01-12 14:46] LABS: ALB/GLOB Ratio 0.6 RATIO (0.9-2.4); AST(SGOT) 46 U/L (15-37); Alanine Aminotransfer ALT/SGPT 73 U/L (13-56); Albumin, Serum 2.3 g/dL (3.2-5.0); Alkaline Phosphatase 113 U/L (45-117); Anion Gap 6 (5-15); BUN 35 mg/dL (7-18); BUN/Creat Ratio 15.8 RATIO (10-20); Calcium,Total 8.5 mg/dL (8.5-10.1); Chloride 112 mmol/L (98-107); Creatinine, Serum 2.21 mg/dL (0.55-1.02); EST Glomerular Filtration Rate 27 mL/min (>60); Est Glom Filt Rate - Afr Amer 32 mL/min (>60); Glucose 81 mg/dL (74-106); LDH 182 U/L (84-246); Potassium 3.8 mmol/L (3.5-5.1); Protein, Total 6.3 g/dL (6.4-8.2); Sodium Level 142 mmol/L (136-145); Uric Acid 8.7 mg/dL (2.6-6.0)
--- NOTE | 2022-01-12 14:51 | PCM.HP.OB ---
HPI - General HPI Narrative JOSHUA MENESES, is a 36 F who presents on POD#6 s/p uncomplicated repeat section 01/05/22 with c/o shortness of breath, worsened with exertion. She reports having had to stop and rest on her walk into the hospital. Reports pressure like sensation in the chest. Denies chest pain or pain with deep inspiration. Reports headaches earlier in the week that resolved with Tylenol. Denies vision changes or upper abdominal pain. She takes Oxycodone 1-2 times daily for incisional pain. PFSH PFSH Medical History (Updated 01/12/22 @ 16:[address] Rose Mckenzie MD) Anxiety Asthma Depression Family history of hearing loss at age younger than 7 years Gestational diabetes Home Medications oxycodone 5 mg PO Q6H PRN PRN 4 Days #16 tab 01/09/22 [Rx Last Taken 01/12/22 04:30] acetaminophen [Tylenol] 1,000 mg PO Q6H PRN 01/12/22 [History Last Taken Unknown] ibuprofen [Motrin] 600 mg PO Q6H PRN 01/12/22 [History Last Taken Unknown] Allergy/AdvReac Type Severity Reaction Status Date / Time No Known Allergies Allergy Verified 01/06/22 09:22 Surgical History (Updated 01/12/22 @ 14:[address] Rose Mckenzie MD) History of surgery Previous section Social History Smoking Status: Never smoker History 2 Elective abortions Hx Para 2 Spontaneous abortions Hx # Term Pregnancies Ectopic pregnancies Hx # Pregnancies Multiple births # of living children 2 ROS Constitutional Constitutional: Reports fatigue; Denies weakness Eyes Eyes: Denies change in vision ENT HEENT: Denies dizziness Cardiovascular Cardiovascular: Reports dyspnea; Denies chest pain, lightheadedness or palpitations Respiratory/Chest Respiratory/Chest: Reports dyspnea and shortness of breath with exertion; Denies cough or wheezing Gastrointestinal Gastrointestinal: Denies abdominal pain, nausea or vomiting Genitourinary Genitourinary: Reports other Details: scant lochia ; Denies dysuria or urinary frequency Neurologic Neurologic: Denies dizziness Vital Signs Vital Signs Vital Signs: 01/12/22 13:40 01/12/22 13:44 01/12/22 14:00 Temperature 98.4 F Temperature Source Temporal Pulse Rate 72 62 71 Blood Pressure 168/77 H 167/81 H BP Systolic 168 167 BP Diastolic 77 81 Pulse Ox 93 95 01/12/22 14:02 01/12/22 14:05 01/12/22 14:17 Temperature Temperature Source Pulse Rate 70 68 66 Blood Pressure 163/88 H 184/86 H BP Systolic 163 184 BP Diastolic 88 86 Pulse Ox 96 01/12/22 14:19 01/12/22 14:24 01/12/22 14:29 Temperature Temperature Source Pulse Rate 69 69 64 Blood Pressure BP Systolic BP Diastolic Pulse Ox 94 94 94 01/12/22 14:34 01/12/22 14:39 01/12/22 14:44 Temperature Temperature Source Pulse Rate 82 68 75 Blood Pressure 161/96 H BP Systolic 161 BP Diastolic 96 Pulse Ox 94 94 92 01/12/22 14:49 Temperature Temperature Source Pulse Rate 67 Blood Pressure BP Systolic BP Diastolic Pulse Ox 93 Weight Weight: 118.388 kg Body Mass Index (BMI) 44.8 Physical Exam Const alert, oriented x3 and no apparent distress HEENT normocephalic Resp normal respiratory effort, normal air movement, no retractions and no use of accessory muscles Auscultation: rhonchi lower bilaterally; Negative for wheezes Cardio regular rate and regular rhythm GI normal to inspection, nondistended, normoactive bowel sounds, soft to palpation, non-tender and non-distended GI Narrative: incisional dressing c/d/i Inspection: gravid Narrative: fundus firm and nontender Extremity no calf tenderness Extremity Narrative: +2 RLE edema, +1 LLE edema Skin no rashes or lesions noted Neuro moves all extremities and deep tendon reflexes 2+ bilaterally Neuro Narrative: no gross motor deficits Motor Exam: clonus absent Psych mental status grossly normal Labs Labs Labs: Blood Type O POSITIVE Antibody Screen NEGATIVE Hct 37.9 % (37-47) Hgb 12.5 g/dL (12.0-15.0) Weight / BMI Weight Weight: 118.388 kg Body Mass Index (BMI) 44.8 ABG / Lab / Microbiology Data Laboratory: Laboratory Results - last 24 hr 01/12/22 14:00: WBC 10.3, RBC 4.13 L, Hgb 12.5, Hct 37.9, MCV 91.8, MCH 30.3, MCHC 33.0, RDW Std Deviation 48.2 H, RDW Coeff of Zainab 14.4, Plt Count 296, MPV 8.7 01/12/22 14:00: U Random Total Protein 23.1 H, Urine Creatinine 58.20, Protein/Creatinin Ratio 397 H 01/12/22 14:00: Creatinine 2.19 H, Estim Creat Clear Calc 30.37, Est GFR (MDRD) Af Amer 32 L, Est GFR (MDRD) Non-Af 27 L, Uric Acid 8.8 H, AST 47 H, ALT 74 H 01/12/22 14:00: Sodium 142, Potassium 3.8, Chloride 112 H, Carbon Dioxide 24.0, Anion Gap 6, BUN 35 H, Creatinine 2.21 H, Estim Creat Clear Calc 30.10, Est GFR (MDRD) Af Amer 32 L, Est GFR (MDRD) Non-Af 27 L, BUN/Creatinine Ratio 15.8, Glucose 81, Uric Acid 8.7 H, Calcium 8.5, Total Bilirubin 0.40, AST 46 H, ALT 73 H, Alkaline Phosphatase 113, Lactate Dehydrogenase 182, Total Protein 6.3 L, Albumin 2.3 L, Globulin 4.0, Albumin/Globulin Ratio 0.6 L Lab / Micro Data Labs: Laboratory Results - last 24 hr 01/12/22 14:00: WBC 10.3, RBC 4.13 L, Hgb 12.5, Hct 37.9, MCV 91.8, MCH 30.3, MCHC 33.0, RDW Std Deviation 48.2 H, RDW Coeff of Zainab 14.4, Plt Count 296, MPV 8.7 01/12/22 14:00: U Random Total Protein 23.1 H, Urine Creatinine 58.20, Protein/Creatinin Ratio 397 H 01/12/22 14:00: Creatinine 2.19 H, Estim Creat Clear Calc 30.37, Est GFR (MDRD) Af Amer 32 L, Est GFR (MDRD) Non-Af 27 L, Uric Acid 8.8 H, AST 47 H, ALT 74 H 01/12/22 14:00: Sodium 142, Potassium 3.8, Chloride 112 H, Carbon Dioxide 24.0, Anion Gap 6, BUN 35 H, Creatinine 2.21 H, Estim Creat Clear Calc 30.10, Est GFR (MDRD) Af Amer 32 L, Est GFR (MDRD) Non-Af 27 L, BUN/Creatinine Ratio 15.8, Glucose 81, Uric Acid 8.7 H, Calcium 8.5, Total Bilirubin 0.40, AST 46 H, ALT 73 H, Alkaline Phosphatase 113, Lactate Dehydrogenase 182, Total Protein 6.3 L, Albumin 2.3 L, Globulin 4.0, Albumin/Globulin Ratio 0.6 L Assessment & Plan (1) Pre-eclampsia affecting puerperium: COMMENT: Elevated Cr and LFTs PLAN: Magnesium 4g/1g Check magnesium levels Serial labs (2) Dyspnea on exertion: PLAN: O2 desaturation present, LE edema asymmetric, obesity and recent section Dfdx pulmonary edema 2/2 preeclampsia vs. pulmonary embolism CTA Chest ordered - reviewed with patient r/b including contrast risks including allergic reaction, anaphylaxis and renal impairment - pt will require pre hydration and post hydration due to decreased GFR. Also discussed VQ scan as alternative. Proceed with CTA. Consider ECHO (3) Hypertension, condition or complication: PLAN: Post labetalol 20mg then 40mg IV with improvement Lisinopril 5mg PO Pt post bilateral salpingectomy (4) delivery delivered: PLAN: PO pain management
[2022-01-12] MEDS: Lisinopril 5 MG Tablet PO (15:09)
[2022-01-12] MEDS: Magnesium Sulfate 4gm/100mL 4 GM/100 ML IV.SOLN. IV (15:54)
[2022-01-12] MEDS: hydrALAZINE 20 MG/ML Vial 10 MG IV (16:28)
[2022-01-12] MEDS: 0.45% Normal Saline 1,000 ML 250 ML IV (16:28)
[2022-01-12] MEDS: Magnesium Sulfate 20 GM/500 ML BAG IV (16:29)
[2022-01-12] MEDS: Enoxaparin 40 MG/0.4 ML Syringe SC (16:30)
[2022-01-12] MEDS: hydrALAZINE 20 MG/ML Vial IV (17:01)
--- NOTE | 2022-01-12 18:12 | NURSING ---
Late entry: Pt presented to at 1320 today with SOB on exertion and pressure in her chest. Pt stated she delivered via C/S 6 days ago. present on pt's arrival and at bedside evaluating pt. remained on unit and periodically re-evaluating pt. during this duration, and currently still on unit managing care. Plan: stabilize BP x 30 min consecutively then pt will have chest CT done. Charge nurse C.St. Manan RN in room assisting to stablize pt and help manage care. Venous US bilat extremities ordered but not available until tomorrow, Dr.Holmes Mckenzie aware. Pt also has order to have an echo. Repeat labs at 2000. Magnesium bolus 4 Grams infused then 1 Gram maint. dose. Pt aware of NPO and strict I &O's. Resp therapy was in room at 1500 to eval peak flow meter: 390. slightly below norm, Dr.Holmes Mckenzie aware. JAMMIE Christy at pt's bedside from 1320-current. No new orders at this time-written at 1830. Westley RN
--- NOTE | 2022-01-12 19:01 | NURSING ---
Late entry: at 180: BP 149/74 and 182:141/82. Notified . 183: at pt's bedside evaluating pt prior to going to CT. assessing lung sounds and aware pt has a dry cough that started an hour ago. No other new symptoms. Pt SPO2 95% RR 18. Dr.Holmes Mckenzie okay to d/c magnesium maintenance dose and 0.[address]
--- NOTE | 2022-01-12 19:20 | NURSING ---
Pt back down to unit. Then up to Br. Pt then switched rooms (rm 12 to rm 13).
[2022-01-12] MEDS: oxyCODONE 5 MG Tablet PO ×2 (19:23→23:26)
--- NOTE | 2022-01-12 19:58 | NURSING ---
1950: on unit. Updated her that pt is back from CT. BP's remain stable. Dr.Holmes Mckenzie stating okay to repeat labs and wait for CT results to decide if pt will have echocardiogram. Updated pt and .
--- NOTE | 2022-01-12 20:05 | NURSING ---
Koki Mckenzie in to see pt and discuss preliminary results of CT
[2022-01-12] MEDS: Furosemide 40 MG/4 ML Vial IV (20:24)
[2022-01-12 20:44] LABS: Hematocrit 36.2 % (37-47); Hemoglobin 12.1 g/dL (12.0-15.0); Mean Corp Hgb Conc 33.4 g/dL (32-36); Mean Corpuscular Volume 89.8 fL (81-99); Mean Platelet Vol. 8.4 fl (6.2-12.0); Platelet Count 316 K/mm3 (150-450); RBC Distribution Width CV 14.6 % (11.6-14.6); RBC Distribution Width SD 47.8 fl (35.1-43.9); Red Blood Count 4.03 M/mm3 (4.2-5.4); White Blood Count 11.8 K/mm3 (4.4-11.0)
[2022-01-12 20:56] LABS: LDH 171 U/L (84-246); Magnesium 4.2 mg/dL (1.6-2.6)
[2022-01-12 20:57] LABS: ALB/GLOB Ratio 0.6 RATIO (0.9-2.4); AST(SGOT) 38 U/L (15-37); Alanine Aminotransfer ALT/SGPT 71 U/L (13-56); Albumin, Serum 2.4 g/dL (3.2-5.0); Alkaline Phosphatase 107 U/L (45-117); Anion Gap 10 (5-15); BUN 35 mg/dL (7-18); Calcium,Total 8.5 mg/dL (8.5-10.1); Chloride 113 mmol/L (98-107); Creatinine, Serum 1.94 mg/dL (0.55-1.02); EST Glomerular Filtration Rate 31 mL/min (>60); Est Glom Filt Rate - Afr Amer 37 mL/min (>60); Estimated Creatinine Clearance 34.29 ml/min; Glucose 93 mg/dL (74-106); Protein, Total 6.4 g/dL (6.4-8.2); Sodium Level 143 mmol/L (136-145)
--- NOTE | 2022-01-12 21:30 | NURSING ---
Tag # 12 applied and activated by gildardo and verified with Rina
--- NOTE | 2022-01-12 21:33 | NURSING ---
Call placed to provider at 2015 for partial lab results, no answer. Call placed at 2117 for final lab results, no answer. Rn will find Provider on unit.
--- NOTE | 2022-01-12 21:45 | NURSING ---
Dr. Kirk Mckenzie on unit and has been reviewing chart from Physician's lounge. RN notified MD of last bp 170/75, and due to be rechecked in 15 minutes. Notified of pt voiding 1800cc, and she states she already feels better. New orders placed for AM labs. Pt OK to take 25 cc of water every hour.
[2022-01-13] VITALS (134 sets, daily range): BP systolic 140–167; BP diastolic 70–88; PULSE 71–103; RESP 16–22; TEMP 36.1–37.1; O2SAT 83–98
[2022-01-13] MEDS: oxyCODONE 5 MG Tablet PO (03:53)
[2022-01-13 06:15] LABS: Hematocrit 37.9 % (37-47); Hemoglobin 12.6 g/dL (12.0-15.0); Mean Corp Hgb Conc 33.2 g/dL (32-36); Mean Corpuscular Hgb 30.5 pg (27.0-32.0); Mean Corpuscular Volume 91.8 fL (81-99); Mean Platelet Vol. 8.6 fl (6.2-12.0); Platelet Count 347 K/mm3 (150-450); RBC Distribution Width CV 14.5 % (11.6-14.6); RBC Distribution Width SD 48.8 fl (35.1-43.9); Red Blood Count 4.13 M/mm3 (4.2-5.4); White Blood Count 10.4 K/mm3 (4.4-11.0)
--- NOTE | 2022-01-13 06:32 | PCM.PN.OB ---
Subjective Subjective Reports dull headache this morning 11/07. Denies vision changes. Pt notes she did not get any sleep last night. She is pumping. She denies nausea or vomiting. Shortness of breath persists, but is much improved. Objective Data Objective Data Vital Signs: Vital Signs Temp Pulse Resp BP Pulse Ox 97.0 F L 92 18 159/79 H 97 01/13/22 05:30 01/13/22 05:42 01/13/22 05:30 01/13/22 05:36 01/13/22 05:42 Oxygen Delivery Method Room Air Weight: 120.656 kg Body Mass Index (BMI) 45.6 Intake & Output: Intake and Output for Last 24 Hours 01/11/22 01/12/22 01/13/22 23:59 23:59 23:59 Intake Total 972.50 / 972.50 672.92 / 672.92 Output Total 4400 / 4400 1400 / 1400 Balance -3427.50 / -3427.50 -727.08 / -727.08 Lab / Micro Data Result Diagrams: 01/13/22 05:43 01/12/22 20:25 Labs: Laboratory Results - last 24 hr 01/12/22 14:00: WBC 10.3, RBC 4.13 L, Hgb 12.5, Hct 37.9, MCV 91.8, MCH 30.3, MCHC 33.0, RDW Std Deviation 48.2 H, RDW Coeff of Zainab 14.4, Plt Count 296, MPV 8.7 01/12/22 14:00: U Random Total Protein 23.1 H, Urine Creatinine 58.20, Protein/Creatinin Ratio 397 H 01/12/22 14:00: Creatinine 2.19 H, Estim Creat Clear Calc 30.37, Est GFR (MDRD) Af Amer 32 L, Est GFR (MDRD) Non-Af 27 L, Uric Acid 8.8 H, AST 47 H, ALT 74 H 01/12/22 14:00: Sodium 142, Potassium 3.8, Chloride 112 H, Carbon Dioxide 24.0, Anion Gap 6, BUN 35 H, Creatinine 2.21 H, Estim Creat Clear Calc 30.10, Est GFR (MDRD) Af Amer 32 L, Est GFR (MDRD) Non-Af 27 L, BUN/Creatinine Ratio 15.8, Glucose 81, Uric Acid 8.7 H, Calcium 8.5, Total Bilirubin 0.40, AST 46 H, ALT 73 H, Alkaline Phosphatase 113, Lactate Dehydrogenase 182, Total Protein 6.3 L, Albumin 2.3 L, Globulin 4.0, Albumin/Globulin Ratio 0.6 L 01/12/22 20:25: WBC 11.8 H, RBC 4.03 L, Hgb 12.1, Hct 36.2 L, MCV 89.8, MCH 30.0, MCHC 33.4, RDW Std Deviation 47.8 H, RDW Coeff of Zainab 14.6, Plt Count 316, MPV 8.4 01/12/22 20:25: Sodium 143, Potassium 4.0, Chloride 113 H, Carbon Dioxide 20.0 L, Anion Gap 10, BUN 35 H, Creatinine 1.94 H, Estim Creat Clear Calc 34.29, Est GFR (MDRD) Af Amer 37 L, Est GFR (MDRD) Non-Af 31 L, BUN/Creatinine Ratio 18.0, Glucose 93, Calcium 8.5, Total Bilirubin 0.50, AST 38 H, ALT 71 H, Alkaline Phosphatase 107, Total Protein 6.4, Albumin 2.4 L, Globulin 4.0, Albumin/Globulin Ratio 0.6 L 01/12/22 20:25: Magnesium 4.2 H, Lactate Dehydrogenase 171 01/13/22 05:43: WBC 10.4, RBC 4.13 L, Hgb 12.6, Hct 37.9, MCV 91.8, MCH 30.5, MCHC 33.2, RDW Std Deviation 48.8 H, RDW Coeff of Zainab 14.5, Plt Count 347, MPV 8.6 Radiography Diagnostic Testing: Radiology Impression Chest CTA 01/12/22 13:50 IMPRESSION: No demonstrated pulmonary embolism or arterial dissection. Bilateral pleural effusions and consolidations. Electronically Signed: Steven Germain DO at 21:00 EDT Reading Location ID and State: [facility] / [place] Tel [phone], Service support , Physical Exam Const alert, oriented x3 and no apparent distress Resp Resp Narrative: Diminished basilar lung sounds bilaterally with mid-lung crackles bilaterally greater on right than left with apical crackles on right Effort and Inspection: able to speak in complete sentences Cardio regular rate, regular rhythm, S1 normal heart sound and S2 normal heart sound GI normal to inspection, nondistended, normoactive bowel sounds, soft to palpation, non-tender and non-distended GI Narrative: incision well approximated with steristrips in place Extremity no calf tenderness Extremity Narrative: +2 b/l LE pitting edema Skin no rashes or lesions noted Neuro moves all extremities, no focal motor deficits and deep tendon reflexes 2+ bilaterally Neuro Narrative: no clonus Assessment & Plan (1) Hypertension, condition or complication: PLAN: Improved however increasing this morning Manage prn (2) delivery delivered: (3) Dyspnea on exertion: PLAN: Sx improvement however no improvement on exam Will obtain cork mixer consultation (4) Pre-eclampsia affecting puerperium: COMMENT: Elevated Cr and LFTs PLAN: No si/sx worsening at this time Continue magnesium
[2022-01-13 07:01] LABS: ALB/GLOB Ratio 0.6 RATIO (0.9-2.4); AST(SGOT) 32 U/L (15-37); Alanine Aminotransfer ALT/SGPT 65 U/L (13-56); Albumin, Serum 2.5 g/dL (3.2-5.0); Alkaline Phosphatase 112 U/L (45-117); Anion Gap 9 (5-15); BUN 33 mg/dL (7-18); BUN/Creat Ratio 15.4 RATIO (10-20); Calcium,Total 8.7 mg/dL (8.5-10.1); Chloride 111 mmol/L (98-107); Creatinine, Serum 2.14 mg/dL (0.55-1.02); EST Glomerular Filtration Rate 28 mL/min (>60); Est Glom Filt Rate - Afr Amer 33 mL/min (>60); Estimated Creatinine Clearance 31.08 ml/min; Globulin 4.3 g/dL (2.2-4.2); Glucose 99 mg/dL (74-106); Magnesium 6.4 mg/dL (1.6-2.6); Potassium 3.9 mmol/L (3.5-5.1); Protein, Total 6.8 g/dL (6.4-8.2); Sodium Level 144 mmol/L (136-145)
--- NOTE | 2022-01-13 07:25 | NURSING ---
Notified Koki Mckenzie of BP 161/77. states she is watching lab levels, and she is having the hospitalist see her today. Magnesium Dc'd due to Mag level 6.4.
[2022-01-13] MEDS: 0.45% Normal Saline 1,000 ML 50 ML IV (07:27)
--- NOTE | 2022-01-13 09:41 | NURSING ---
surgical incision well approx. with steri strips no redness or bruising.
--- NOTE | 2022-01-13 09:46 | CON.PCM.HO_ITS ---
Assessment & Plan Assessment/Plan (1) Hypertension, condition or complication: (2) CHF exacerbation: (3) HELENA (acute kidney injury): PLAN: 1. Hypertension * * Start amlodipine 5 mg daily. We will continue for now and have patient follow-up with her primary care physician to see if that would need to be continued moving forward. 2. Acute CHF exacerbation * I cannot determine how much fluids patient received during her recent hospitalization but suspect that she received fluids trigger having section and may be volume overloaded from that. * Check an echocardiogram as I cannot rule out cardiomyopathy at this time. * Patient did receive a dose of IV furosemide. Would exercised caution given her acute kidney injury. * Pulmonary on consult 3. Acute kidney injury * No baseline labs to compare to. * Patient did receive a CT angiogram so we will continue to monitor her creatinine. * Check urine studies * If continues get worse may need to consider nephrology consultation HPI Consult Data Date of Consult: 01/13/22 HPI Narrative HPI Narrative: JOSHUA MENESES, is a 36 F who presents with shortness of breath. Pt underwent a section on 01/06. She was discharged on the . Since being home, she has been having SAVAGE. She had a CTA of her chest that showed bilateral pleural effusions and consolidation. Pt was hypertensive and received nifedipine, lisinopril, furosemide, hydralazine. [facility] Medical History Anxiety Asthma Depression Family history of hearing loss at age younger than 7 years Gestational diabetes Home Medications oxycodone 5 mg PO Q6H PRN PRN 4 Days #16 tab 01/09/22 [Rx Last Taken 01/12/22 04:30] acetaminophen [Tylenol] 1,000 mg PO Q6H PRN 01/12/22 [History Last Taken Unknown] ibuprofen [Motrin] 600 mg PO Q6H PRN 01/12/22 [History Last Taken Unknown] Allergy/AdvReac Type Severity Reaction Status Date / Time No Known Allergies Allergy Verified 01/06/22 09:22 Family History (Updated 01/13/22 @ 09:[address] Toni Amaya DO) Father Hypertension Surgical History History of surgery Previous section Social History (Updated 01/13/22 @ 09:[address] Toni Amaya, DO) Smoking Status: Never smoker alcohol intake: never substance use type: does not use ROS ROS Narrative Lower extremity edema was ongoing prior to her section but she notes that it got worse afterwards. Coughing, nonproductive. All review of systems were negative except as mentioned above in the history of present illness and the other review of systems. Physical Exam Const Constitutional Narrative: On room air. No respiratory distress. No conversational dyspnea Resp normal respiratory effort and no retractions Resp Narrative: Bibasilar crackles Cardio regular rate, regular rhythm, S1 normal heart sound and S2 normal heart sound GI normal to inspection, nondistended, normoactive bowel sounds, soft to palpation, non-tender and non-distended Extremity full ROM Extremity Narrative: Nonpitting in lower extremities General Extremity: edema Skin no rashes or lesions noted Neuro Sensorium / Orientation: awake and alert Psych affect normal Lab / Micro Data Result Diagrams: 01/13/22 05:43 01/13/22 05:43 Labs: Laboratory Results - last 24 hr 01/12/22 14:00: WBC 10.3, RBC 4.13 L, Hgb 12.5, Hct 37.9, MCV 91.8, MCH 30.3, MCHC 33.0, RDW Std Deviation 48.2 H, RDW Coeff of Zainab 14.4, Plt Count 296, MPV 8.7 01/12/22 14:00: U Random Total Protein 23.1 H, Urine Creatinine 58.20, Protein/Creatinin Ratio 397 H 01/12/22 14:00: Creatinine 2.19 H, Estim Creat Clear Calc 30.37, Est GFR (MDRD) Af Amer 32 L, Est GFR (MDRD) Non-Af 27 L, Uric Acid 8.8 H, AST 47 H, ALT 74 H 01/12/22 14:00: Sodium 142, Potassium 3.8, Chloride 112 H, Carbon Dioxide 24.0, Anion Gap 6, BUN 35 H, Creatinine 2.21 H, Estim Creat Clear Calc 30.10, Est GFR (MDRD) Af Amer 32 L, Est GFR (MDRD) Non-Af 27 L, BUN/Creatinine Ratio 15.8, Glucose 81, Uric Acid 8.7 H, Calcium 8.5, Total Bilirubin 0.40, AST 46 H, ALT 73 H, Alkaline Phosphatase 113, Lactate Dehydrogenase 182, Total Protein 6.3 L, Albumin 2.3 L, Globulin 4.0, Albumin/Globulin Ratio 0.6 L 01/12/22 20:25: WBC 11.8 H, RBC 4.03 L, Hgb 12.1, Hct 36.2 L, MCV 89.8, MCH 30.0, MCHC 33.4, RDW Std Deviation 47.8 H, RDW Coeff of Zainab 14.6, Plt Count 316, MPV 8.4 01/12/22 20:25: Sodium 143, Potassium 4.0, Chloride 113 H, Carbon Dioxide 20.0 L , Anion Gap 10, BUN 35 H, Creatinine 1.94 H, Estim Creat Clear Calc 34.29, Est GFR (MDRD) Af Amer 37 L, Est GFR (MDRD) Non-Af 31 L, BUN/Creatinine Ratio 18.0, Glucose 93, Calcium 8.5, Total Bilirubin 0.50, AST 38 H, ALT 71 H, Alkaline Phosphatase 107, Total Protein 6.4, Albumin 2.4 L, Globulin 4.0, Albumin/Globulin Ratio 0.6 L 01/12/22 20:25: Magnesium 4.2 H, Lactate Dehydrogenase 171 01/13/22 05:43: WBC 10.4, RBC 4.13 L, Hgb 12.6, Hct 37.9, MCV 91.8, MCH 30.5, MCHC 33.2, RDW Std Deviation 48.8 H, RDW Coeff of Zainab 14.5, Plt Count 347, MPV 8.6 01/13/22 05:43: Sodium 144, Potassium 3.9, Chloride 111 H, Carbon Dioxide 24.0, Anion Gap 9, BUN 33 H, Creatinine 2.14 H, Estim Creat Clear Calc 31.08, Est GFR (MDRD) Af Amer 33 L, Est GFR (MDRD) Non-Af 28 L, BUN/Creatinine Ratio 15.4, Glucose 99, Calcium 8.7, Magnesium 6.4 H*, Total Bilirubin 0.50, AST 32, ALT 65 H, Alkaline Phosphatase 112, Total Protein 6.8, Albumin 2.5 L, Globulin 4.3 H, Albumin/Globulin Ratio 0.6 L Radiology Impression Chest CTA 01/12/22 13:50 IMPRESSION: No demonstrated pulmonary embolism or arterial dissection. Bilateral pleural effusions and consolidations. Electronically Signed: Steven Germain DO at 21:00 EDT Reading Location ID and State: [facility] / [place] Tel [phone], Service support , Charges/Coding Visit Charges Inpatient E&M: 92200 Init Hosp L2
--- NOTE | 2022-01-13 09:48 | NURSING ---
8aPatrick Amaya in room to talk to pt as a consult , listened to her lungs and explained symptoms he was looking for. Assessment on mom shows no pitting edema , bilateral pedal pulses noted, pt voiding without problem.
[2022-01-13] MEDS: Enoxaparin 40 MG/0.4 ML Syringe SC (10:00)
[2022-01-13] MEDS: amLODIPine 5 MG Tablet PO (10:00)
--- NOTE | 2022-01-13 10:05 | ECHOD_ITS ---
Reason For Study: Pulm edema Procedure This was a 2D Doppler, Color Flow transthoracic echocardiogram. Exam performed portable in patient room. Left Ventricle Normal LV size. Left ventricular systolic function is normal. The estimated ejection fraction is 60 %. Normal diastology for age. No regional wall motion abnormalities noted. Right Ventricle Normal RV size. Normal systolic function. Atria Normal left atrium. Normal right atrium. Mitral Valve Normal mitral valve. Tricuspid Valve Normal tricuspid valve. Mild (1+) tricuspid valve insufficiency. Pulmonary artery systolic pressure is 37 mmHg. Aortic Valve Normal aortic valve. Trisinus/trileaflet aortic valve. Pulmonic Valve Normal pulmonic valve. Great Vessels Normal aortic root. Pericardium/Pleural No pericardial effusion. MMode/2D Measurements & Calculations LVIDd: 4.5 cm IVSd: 0.93 cm Ao root diam: 2.8 cm LVIDs: 2.6 cm LVPWd: 1.1 cm RVDd: 3.6 cm FS: 41.8 % LAV(MOD-bp): 50.8 ml LVAd ap4: 29.3 cm2 LVAd ap2: 32.7 cm2 LAV(MOD-bp) Indexed: 23.0 ml/m2 LVLd ap4: 8.6 cm LVLd ap2: 8.8 cm LAV(MOD-sp2): 54.2 ml EDV(MOD-sp4): 83.5 ml EDV(MOD-sp2): 103.7 ml LAV(MOD-sp4): 47.6 ml EDV(sp4-el): 84.4 ml EDV(sp2-el): 103.2 ml LVAs ap4: 14.7 cm2 LVAs ap2: 17.0 cm2 LVLs ap4: 7.1 cm LVLs ap2: 7.7 cm ESV(MOD-sp4): 26.2 ml ESV(MOD-sp2): 34.6 ml ESV(sp4-el): 25.9 ml ESV(sp2-el): 31.8 ml EF(MOD-sp4): 68.6 % EF(MOD-sp2): 66.6 % EF(sp4-el): 69.4 % SV(MOD-sp4): 57.2 ml SV(MOD-sp2): 69.1 ml SV(sp4-el): 58.5 ml LA dimension(2D): 4.4 cm LA A4 area: 18.1 cm2 RA A4 area: 14.3 cm2 Doppler Measurements & Calculations MV E max tavares: 126.0 cm/sec Lat Peak E' Tavares: 14.8 cm/sec Med Peak E' Tavares: 7.4 cm/sec MV A max tavares: 104.5 cm/sec E/E' lat: 8.5 E/E' med: 16.9 MV E/A: 1.2 Ao V2 max: 172.0 cm/sec LV V1 max: 150.1 cm/sec TV V2 max: 294.8 cm/sec Ao max P.8 mmHg LV V1 max P.0 mmHg TV max P.8 mmHg PA V2 max: 156.3 cm/sec TR max tavares: 285.2 cm/sec TR max P.6 mmHg ECHO/Echo Complete Interpretation Summary Normal LV size. Left ventricular systolic function is normal. The estimated ejection fraction is 60 %. Normal diastology for age. Pulmonary artery systolic pressure is 37 mmHg. Ordering Physician: Toni Amaya Performed By: Lorie Leavitt RDCS
[2022-01-13 10:47] LABS: Procalcitonin 3.39 ng/mL (0.00-0.09)
[2022-01-13 10:53] LABS: Color, Urine Yellow (Yellow); Glucose, Dipstick Normal (Normal); Ketone-Dipstick Negative (Negative); Leukocyte Esterase-Dipstick 100 /ul (Negative); Nitrite-Dipstick Negative (Negative); Occult Blood-Urine 50 /ul (Negative); Protein-Dipstick 30 mg/dl (Negative); Urine Bilirubin Dipstick Negative (Negative); Urine Clarity Clear (Clear); Urine Urobilinogen Normal (Normal)
[2022-01-13 11:00] LABS: Bacteria 1+ /hpf (None Seen); Mucous, Urine 1+ /hpf (<or=2+); Red Blood Cells-Urine 0-5 SEEN /hpf (0-5); Squamous Epithelial Cells - UA 0-5 SEEN /hpf (5-10); White Blood Cells 5-10 SEEN /hpf (0-5)
[2022-01-13 11:26] LABS: Urea Nitrogen, Urine 217 mg/dL (NO RANGE EST.)
--- NOTE | 2022-01-13 12:01 | NURSING ---
1120am staff in room to do echo. pt states understanding.
[2022-01-13 12:13] LABS: BNP,B-Type NATRIURETIC PEPTIDE 230.9 pg/mL (0-100)
--- NOTE | 2022-01-13 12:16 | CON.PCM.CC_ITS ---
Assessment & Plan Assessment/Plan (1) Hypertension, condition or complication: PLAN: RECOMMENDATIONS: 1. Discontinue IV fluids and liberalize diet. 2. Continue p.o. antihypertensive regimen and titrate as necessary. 3. I would await the patient to auto diurese and hold off on any additional diuretics, as the patient appears euvolemic. 4. Encourage incentive spirometer use and mobilize patient as tolerated. 5. Check BNP. IMPRESSIONS: 1. hypertension/preeclampsia The patient presented with shortness of breath in the setting of uncontrolled hypertension and likely a component of pulmonary edema as a consequence of the aforementioned. She also had concurrent HELENA and was ruled out for pulmonary embolism with CTA chest. That imaging study did demonstrate the presence of bilateral effusions. Despite this, the patient has not required any supplemental oxygen to maintain appropriate saturations. At this time, I would recommend that the patient's continuous IV fluids be discontinued. Will check BNP. Echocardiogram revealed normal LV function. Given that the patient does not appear overtly volume overloaded and is maintaining appropriate oxygen saturations on room air, I would avoid additional IV diuretic therapy for now, while awaiting improvement in her renal function. I would encourage the use of her incentive spirometer and mobilize patient as tolerated. Her diet can be liberalized from my perspective. 2. Acute kidney injury Likely secondary to #1. The patient will likely begin to auto diurese on her own. Her fluids will be discontinued. She will be monitored clinically without plans for any additional diuretic therapy. This note was generated with [employer] dictation software. It may contain incorrect words, spelling, and punctuation that were not noted in checking the note before signing. HPI Consult Data Date of Consult: 01/13/22 HPI Narrative Reason for Consultation: Preeclampsia with shortness of breath, pulmonary edema and HELENA HPI Narrative: The patient is a 36-year-old female, with a history as outlined below, who presented following an uncomplicated on January 05 with shortness of breath, primarily with exertion. The patient does not have any pre-existing diagnosis of hypertension. She denies any prior pulmonary related issues or disease. On presentation, the patient was initially noted to be hypertensive but was maintaining appropriate oxygen saturations on room air. Initial laboratory evaluation revealed a chloride of 112 with a creatinine of 2.21. AST and ALT were mildly increased to 46 and 73, respectively. The patient was initially admitted for further work-up and concern for preeclampsia. A CTA chest was ordered. However, in light of her HELENA, the patient received supplemental IV fluid hydration. Her blood pressure was initially managed with as needed labetalol along with lisinopril by mouth. Today, the patient does report overall interval improvement in her dyspnea. She did receive a one-time dose of IV Lasix yesterday. The patient was seen in consultation by the hospitalist and initiated on Norvasc as well. Her blood p ressures are improved. She denies the presence of a cough, chest tightness or wheezing. Surface echocardiogram was completed earlier today and revealed normal LV size and function with an ejection fraction of 60%. Pulmonary artery systolic pressure was estimated to be 37 mmHg. [facility] Medical History Anxiety Asthma Depression Family history of hearing loss at age younger than 7 years Gestational diabetes Home Medications oxycodone 5 mg PO Q6H PRN PRN 4 Days #16 tab 01/09/22 [Rx Last Taken 01/12/22 04:30] acetaminophen [Tylenol] 1,000 mg PO Q6H PRN 01/12/22 [History Last Taken Unknown] ibuprofen [Motrin] 600 mg PO Q6H PRN 01/12/22 [History Last Taken Unknown] Allergy/AdvReac Type Severity Reaction Status Date / Time No Known Allergies Allergy Verified 01/06/22 09:22 Family History (Updated 01/13/22 @ 09:[address] Toni Amaya DO) Father Hypertension Surgical History History of surgery Previous section Social History (Updated 01/13/22 @ 09:[address] Toni Amaya DO) Smoking Status: Never smoker alcohol intake: never substance use type: does not use ROS Constitutional Constitutional: Denies chills, fatigue or fever(s) Eyes Eyes: Denies blurry vision or change in vision ENT HEENT: Denies dizziness, dysphagia, epistaxis or headache(s) Cardiovascular Cardiovascular: Reports dyspnea and edema Respiratory/Chest Respiratory/Chest: Reports dyspnea; Denies cough Gastrointestinal Gastrointestinal: Denies abdominal pain, diarrhea, nausea or vomiting Genitourinary Genitourinary: Denies difficulty urinating Musculoskeletal Musculoskeletal: Denies arthralgias, back pain or joint pain Integumentary Integumentary: Denies lesions, rash or skin ulcer Neurologic Neurologic: Denies abnormal gait or abnormal speech Psychiatric Psychiatric: Denies anxiety or depression Endocrine Endocrinology: Denies fatigue Hematologic/Lymphatic Hematologic/Lymphatic: Denies easy bleeding or easy bruising Physical Exam Const alert, oriented x3 and no apparent distress General Appearance: cooperative Nutritional Appearance: obese HEENT normocephalic, head/scalp atraumatic and moist oral mucous membranes Eyes PERRL, EOMs intact bilaterally and conjunctivae normal Neck supple General: trachea midline Chest inspection of chest normal Resp normal respiratory effort and no use of accessory muscles Effort and Inspection: able to speak in complete sentences Auscultation: rales bilateral lower Cardio regular rate and regular rhythm GI normal to inspection, nondistended, normoactive bowel sounds Extremity General Extremity: edema Skin no rashes or lesions noted Neuro oriented x3, CN's II-XII intact bilaterally and moves all extremities Psych cooperative and affect normal Lab / Micro Data Result Diagrams: 01/13/22 05:43 01/13/22 05:43 Labs: Laboratory Results - last 24 hr 01/12/22 14:00: WBC 10.3, RBC 4.13 L, Hgb 12.5, Hct 37.9, MCV 91.8, MCH 30.3, MCHC 33.0, RDW Std Deviation 48.2 H, RDW Coeff of Zainab 14.4, Plt Count 296, MPV 8.7 01/12/22 14:00: U Random Total Protein 23.1 H, Urine Creatinine 58.20, Protein/Creatinin Ratio 397 H 01/12/22 14:00: Creatinine 2.19 H, Estim Creat Clear Calc 30.37, Est GFR (MDRD) Af Amer 32 L, Est GFR (MDRD) Non-Af 27 L, Uric Acid 8.8 H, AST 47 H, ALT 74 H 01/12/22 14:00: Sodium 142, Potassium 3.8, Chloride 112 H, Carbon Dioxide 24.0, Anion Gap 6, BUN 35 H, Creatinine 2.21 H, Estim Creat Clear Calc 30.10, Est GFR (MDRD) Af Amer 32 L, Est GFR (MDRD) Non-Af 27 L, BUN/Creatinine Ratio 15.8, Glucose 81, Uric Acid 8.7 H, Calcium 8.5, Total Bilirubin 0.40, AST 46 H, ALT 73 H, Alkaline Phosphatase 113, Lactate Dehydrogenase 182, Total Protein 6.3 L, Albumin 2.3 L, Globulin 4.0, Albumin/Globulin Ratio 0.6 L 01/12/22 20:25: WBC 11.8 H, RBC 4.03 L, Hgb 12.1, Hct 36.2 L, MCV 89.8, MCH 30.0, MCHC 33.4, RDW Std Deviation 47.8 H, RDW Coeff of Zainab 14.6, Plt Count 316, MPV 8.4 01/12/22 20:25: Sodium 143, Potassium 4.0, Chloride 113 H, Carbon Dioxide 20.0 L , Anion Gap 10, BUN 35 H, Creatinine 1.94 H, Estim Creat Clear Calc 34.29, Est GFR (MDRD) Af Amer 37 L, Est GFR (MDRD) Non-Af 31 L, BUN/Creatinine Ratio 18.0, Glucose 93, Calcium 8.5, Total Bilirubin 0.50, AST 38 H, ALT 71 H, Alkaline Phosphatase 107, Total Protein 6.4, Albumin 2.4 L, Globulin 4.0, Albumin/Globulin Ratio 0.6 L 01/12/22 20:25: Magnesium 4.2 H, Lactate Dehydrogenase 171 01/13/22 05:43: WBC 10.4, RBC 4.13 L, Hgb 12.6, Hct 37.9, MCV 91.8, MCH 30.5, MCHC 33.2, RDW Std Deviation 48.8 H, RDW Coeff of Zainab 14.5, Plt Count 347, MPV 8.6 01/13/22 05:43: Sodium 144, Potassium 3.9, Chloride 111 H, Carbon Dioxide 24.0, Anion Gap 9, BUN 33 H, Creatinine 2.14 H, Estim Creat Clear Calc 31.08, Est GFR (MDRD) Af Amer 33 L, Est GFR (MDRD) Non-Af 28 L, BUN/Creatinine Ratio 15.4, Glucose 99, Calcium 8.7, Magnesium 6.4 H*, Total Bilirubin 0.50, AST 32, ALT 65 H, Alkaline Phosphatase 112, Total Protein 6.8, Albumin 2.5 L, Globulin 4.3 H, Albumin/Globulin Ratio 0.6 L 01/13/22 09:20: B-Natriuretic Peptide 230.9 H 01/13/22 09:20: Procalcitonin 3.39 H 01/13/22 10:42: Urine Color Yellow, Urine Clarity Clear, Urine pH 6.0, Ur Specific [employer] 1.010, Urine Protein 30 H, Urine Glucose (UA) Normal, Urine Ketones Negative, Urine Occult Blood 50 H, Urine Nitrite Negative, Urine Bilirubin Negative, Urine Urobilinogen Normal, Ur Leukocyte Esterase 100 H, Urine RBC 0-5 SEEN, Urine WBC 5-10 SEEN, Ur Squamous Epith Cells 0-5 SEEN, Urine Bacteria 1+, Urine Mucus 1+ 01/13/22 10:42: Urine Urea Nitrogen 217 Radiology Impression Chest CTA 01/12/22 13:50 IMPRESSION: No demonstrated pulmonary embolism or arterial dissection. Bilateral pleural effusions and consolidations. Electronically Signed: Steven Germain DO at 21:00 EDT Reading Location ID and State: [facility] / [place] Tel [phone], Service support , Echocardiogram 01/13/22 10:05 Interpretation Summary Normal LV size. Left ventricular systolic function is normal. The estimated ejection fraction is 60 %. Normal diastology for age. Pulmonary artery systolic pressure is 37 mmHg. Ordering Physician: Toni Amaya Performed By: Lorie Leavitt RDCS Charges/Coding Visit Charges Inpatient E&M: 59426 Init Hosp L3
--- NOTE | 2022-01-13 12:19 | NURSING ---
Dr Philip in room to assess pt and talk plan of care. diet order given fluid restriction lifted.
--- NOTE | 2022-01-13 13:33 | NURSING ---
pt tolerated diet well, preparing to pump now . offers no c/o
[2022-01-13] MEDS: 0.9% Saline Lock 10 ML Syringe IV (16:10)
--- NOTE | 2022-01-13 17:33 | NURSING ---
pt visiting with and baby, ambulating in room and feeling better. ordering supper.
[2022-01-14] VITALS (11 sets, daily range): BP systolic 131–149; BP diastolic 67–89; PULSE 70–78; RESP 14–16; TEMP 36.9–37.8; O2SAT 94–95
[2022-01-14] MEDS: 0.9% Saline Lock 10 ML Syringe IV (04:07)
[2022-01-14 05:44] LABS: Hematocrit 37.5 % (37-47); Hemoglobin 12.3 g/dL (12.0-15.0); Mean Corp Hgb Conc 32.8 g/dL (32-36); Mean Corpuscular Hgb 30.3 pg (27.0-32.0); Mean Corpuscular Volume 92.4 fL (81-99); Mean Platelet Vol. 8.2 fl (6.2-12.0); Platelet Count 359 K/mm3 (150-450); RBC Distribution Width CV 14.5 % (11.6-14.6); RBC Distribution Width SD 49.3 fl (35.1-43.9); Red Blood Count 4.06 M/mm3 (4.2-5.4); White Blood Count 9.2 K/mm3 (4.4-11.0)
[2022-01-14 06:08] LABS: ALB/GLOB Ratio 0.5 RATIO (0.9-2.4); AST(SGOT) 21 U/L (15-37); Alanine Aminotransfer ALT/SGPT 46 U/L (13-56); Albumin, Serum 2.3 g/dL (3.2-5.0); Alkaline Phosphatase 100 U/L (45-117); Anion Gap 7 (5-15); BUN 33 mg/dL (7-18); BUN/Creat Ratio 14.9 RATIO (10-20); Calcium,Total 8.2 mg/dL (8.5-10.1); Chloride 109 mmol/L (98-107); Creatinine, Serum 2.21 mg/dL (0.55-1.02); EST Glomerular Filtration Rate 27 mL/min (>60); Est Glom Filt Rate - Afr Amer 32 mL/min (>60); Globulin 4.2 g/dL (2.2-4.2); Glucose 99 mg/dL (74-106); Potassium 4.2 mmol/L (3.5-5.1); Protein, Total 6.5 g/dL (6.4-8.2); Sodium Level 141 mmol/L (136-145)
--- NOTE | 2022-01-14 06:17 | PCM.PN.INT ---
Assessment & Plan Assessment/Plan (1) Hypertension, condition or complication: PLAN: RECOMMENDATIONS: 1. Continue p.o. antihypertensive regimen and titrate as necessary. 2. Encourage incentive spirometer use and mobilize patient as tolerated. 3. Will sign off from a pulmonary perspective. Please call with any additional questions. IMPRESSIONS: 1. hypertension/preeclampsia The patient presented with shortness of breath in the setting of uncontrolled hypertension and likely a component of pulmonary edema as a consequence of the aforementioned. She also had concurrent HELENA and was ruled out for pulmonary embolism with CTA chest. That imaging study did demonstrate the presence of bilateral effusions. Despite this, the patient has not required any supplemental oxygen to maintain appropriate saturations. Echocardiogram revealed normal LV function. Given that the patient does not appear overtly volume overloaded and is maintaining appropriate oxygen saturations on room air, I would avoid additional diuretic therapy. I do suspect that the patient will auto diuresis as her renal function improves. Continue to encourage incentive spirometer use and mobilize patient as tolerated. Continue antihypertensive regimen per hospitalist. 2. Acute kidney injury Likely secondary to #1. The patient will likely begin to auto diurese on her own. She will be monitored clinically without plans for any additional diuretic therapy. Recommend follow-up BMP 2 to 3 days postdischarge. Avoid nephrotoxic medications. This note was generated with [employer] dictation software. It may contain incorrect words, spelling, and punctuation that were not noted in checking the note before signing. Subjective Subjective The patient was seen and examined at the bedside this morning. Events from the last 24 hours have been reviewed. The patient is currently afebrile, hemodynamically stable and maintaining appropriate oxygen saturations on room air. Fluids were discontinued yesterday and diet was liberalized. Creatinine has plateaued at 2.2. Fractional excretion of urea was most consistent with prerenal disease. The patient denies any shortness of breath or cough. She is anxious to be discharged home. Objective Data Objective Data The patient's most recent lab work, culture data and imaging studies have all been personally reviewed. Surface echocardiogram demonstrated normal LV size and function with an ejection fraction of 60%. Pulmonary artery systolic pressure was estimated to be 37 mmHg. Vital Signs: Vital Signs Temp Pulse Resp BP Pulse Ox 98.4 F 73 16 145/84 H 95 01/14/22 04:15 01/14/22 04:15 01/14/22 04:15 01/14/22 04:15 01/14/22 04:15 Oxygen Delivery Method Room Air Weight: 120.656 kg Body Mass Index (BMI) 45.6 Intake & Output: Intake and Output for Last 24 Hours 01/12/22 01/13/22 01/14/22 23:59 23:59 23:59 Intake Total 972.50 / 972.50 3538.758 / 3538.758 Output Total 4400 / 4400 4250 / 4850 600 / 600 Balance -3427.50 / -3427.50 -711.242 / -1311.242 -600 / -600 Lab / Micro Data Attestation: I reviewed the patient's lab results. Result Diagrams: 01/14/22 05:40 01/14/22 05:40 Labs: Laboratory Results - last 24 hr 01/13/22 05:43: Sodium 144, Potassium 3.9, Chloride 111 H, Carbon Dioxide 24.0, Anion Gap 9, BUN 33 H, Creatinine 2.14 H, Estim Creat Clear Calc 31.08, Est GFR (MDRD) Af Amer 33 L, Est GFR (MDRD) Non-Af 28 L, BUN/Creatinine Ratio 15.4, Glucose 99, Calcium 8.7, Magnesium 6.4 H*, Total Bilirubin 0.50, AST 32, ALT 65 H, Alkaline Phosphatase 112, Total Protein 6.8, Albumin 2.5 L, Globulin 4.3 H, Albumin/Globulin Ratio 0.6 L 01/13/22 09:20: B-Natriuretic Peptide 230.9 H 01/13/22 09:20: Procalcitonin 3.39 H 01/13/22 10:42: Urine Color Yellow, Urine Clarity Clear, Urine pH 6.0, Ur Specific [place] 1.010, Urine Protein 30 H, Urine Glucose (UA) Normal, Urine Ketones Negative, Urine Occult Blood 50 H, Urine Nitrite Negative, Urine Bilirubin Negative, Urine Urobilinogen Normal, Ur Leukocyte Esterase 100 H, Urine RBC 0-5 SEEN, Urine WBC 5-10 SEEN, Ur Squamous Epith Cells 0-5 SEEN, Urine Bacteria 1+, Urine Mucus 1+ 01/13/22 10:42: Urine Urea Nitrogen 217 01/14/22 05:40: WBC 9.2, RBC 4.06 L, Hgb 12.3, Hct 37.5, MCV 92.4, MCH 30.3, MCHC 32.8, RDW Std Deviation 49.3 H, RDW Coeff of Zainab 14.5, Plt Count 359, MPV 8.2 01/14/22 05:40: Sodium 141, Potassium 4.2, Chloride 109 H, Carbon Dioxide 25.0, Anion Gap 7, BUN 33 H, Creatinine 2.21 H, Estim Creat Clear Calc 30.10, Est GFR (MDRD) Af Amer 32 L, Est GFR (MDRD) Non-Af 27 L, BUN/Creatinine Ratio 14.9, Glucose 99, Calcium 8.2 L, Total Bilirubin 0.50, AST 21, ALT 46, Alkaline Phosphatase 100, Total Protein 6.5, Albumin 2.3 L, Globulin 4.2, Albumin/Globulin Ratio 0.5 L Radiography Diagnostic Testing: Radiology Impression Echocardiogram 01/13/22 10:05 Interpretation Summary Normal LV size. Left ventricular systolic function is normal. The estimated ejection fraction is 60 %. Normal diastology for age. Pulmonary artery systolic pressure is 37 mmHg. Ordering Physician: Toni Amaya Performed By: Lorie Leavitt RDCS Physical Exam Const alert, oriented x3 and no apparent distress Constitutional Narrative: Sitting in bedside recliner. General Appearance: cooperative Nutritional Appearance: obese HEENT normocephalic, head/scalp atraumatic and moist oral mucous membranes Eyes PERRL, EOMs intact bilaterally and conjunctivae normal Neck supple General: trachea midline Chest inspection of chest normal Resp normal respiratory effort and no use of accessory muscles Effort and Inspection: able to speak in complete sentences Auscultation: rales Cardio regular rate and regular rhythm GI normal to inspection, nondistended, normoactive bowel sounds Extremity General Extremity: edema Skin no rashes or lesions noted Neuro oriented x3, CN's II-XII intact bilaterally and moves all extremities Psych cooperative and affect normal Charges/Coding Visit Charges Inpatient E&M: 43276 Subs Hosp L2
--- NOTE | 2022-01-14 08:48 | NURSING ---
Dr. Philip on unit and assessed patient. States that patient is cleared to go home from him. Would repeat labs in 2-[address] Morrow at bedside currently.
--- NOTE | 2022-01-14 08:56 | NURSING ---
Dr. Morrow at bedside. Talking to patient about following up in the office on and that patient needs to check her BP at home. Pt instructed by Dr. Morrow on medication administration and when to call the office.
--- NOTE | 2022-01-14 09:00 | NURSING ---
Pt declines wanting a prescription for depression at this time. Dr. Morrow at bedside when patient verbalized declining medication.
--- NOTE | 2022-01-14 09:05 | PN.OBGYN_ITS ---
Subjective Subjective Patient without complaints. Feeling much better after IV magnesium sulfate discontinued yesterday. No shortness of breath. Has been seen by Dr. Philip of internal medicine who feels patient can be discharged today with checking creatinine later this week. Objective Data Objective Data Vital Signs: Vital Signs Temp Pulse Resp BP Pulse Ox 100.0 F H 71 16 139/81 H 95 01/14/22 08:16 01/14/22 08:17 01/14/22 08:16 01/14/22 08:17 01/14/22 08:16 Oxygen Delivery Method Room Air Weight: 266 lb Body Mass Index (BMI) 45.6 Intake & Output: Intake and Output for Last 24 Hours 01/12/22 01/13/22 01/14/22 23:59 23:59 23:59 Intake Total 972.50 / 972.50 3538.758 / 3538.758 400 / 400 Output Total 4400 / 4400 4250 / 4850 1250 / 1250 Balance -3427.50 / -3427.50 -711.242 / -1311.242 -850 / -850 Lab / Micro Data Result Diagrams: 01/14/22 05:40 01/14/22 05:40 Labs: Laboratory Results - last 24 hr 01/13/22 09:20: B-Natriuretic Peptide 230.9 H 01/13/22 09:20: Procalcitonin 3.39 H 01/13/22 10:42: Urine Color Yellow, Urine Clarity Clear, Urine pH 6.0, Ur Specific [place] 1.010, Urine Protein 30 H, Urine Glucose (UA) Normal, Urine Ketones Negative, Urine Occult Blood 50 H, Urine Nitrite Negative, Urine Bilirubin Negative, Urine Urobilinogen Normal, Ur Leukocyte Esterase 100 H, Urine RBC 0-5 SEEN, Urine WBC 5-10 SEEN, Ur Squamous Epith Cells 0-5 SEEN, Urine Bacteria 1+, Urine Mucus 1+ 01/13/22 10:42: Urine Urea Nitrogen 217 01/14/22 05:40: WBC 9.2, RBC 4.06 L, Hgb 12.3, Hct 37.5, MCV 92.4, MCH 30.3, MCHC 32.8, RDW Std Deviation 49.3 H, RDW Coeff of Zainab 14.5, Plt Count 359, MPV 8.2 01/14/22 05:40: Sodium 141, Potassium 4.2, Chloride 109 H, Carbon Dioxide 25.0, Anion Gap 7, BUN 33 H, Creatinine 2.21 H, Estim Creat Clear Calc 30.10, Est GFR (MDRD) Af Amer 32 L, Est GFR (MDRD) Non-Af 27 L, BUN/Creatinine Ratio 14.9, Glucose 99, Calcium 8.2 L, Total Bilirubin 0.50, AST 21, ALT 46, Alkaline Phosphatase 100, Total Protein 6.5, Albumin 2.3 L, Globulin 4.2, Albumin/Globul in Ratio 0.5 L Radiography Diagnostic Testing: Radiology Impression Echocardiogram 01/13/22 10:05 Interpretation Summary Normal LV size. Left ventricular systolic function is normal. The estimated ejection fraction is 60 %. Normal diastology for age. Pulmonary artery systolic pressure is 37 mmHg. Ordering Physician: Toni Amaya Performed By: Lorie Leavitt RDCS Assessment & Plan (1) HELENA (acute kidney injury): PLAN: Uncertain etiology. Possible injury from -induced hypertension versus home oral ibuprofen use. We will repeat creatinine in 2 to 3 days and avoid use of ibuprofen or Aleve at home. Only use Tylenol sparingly if needed for pain. (2) Hypertension, condition or complication: PLAN: May be related to kidney injury and will likely resolve when kidney injury resolves. For now we will have patient continue Norvasc 5 mg daily at home and intermittently check blood pressures especially if she is having any orthostatic symptoms. Indicated to patient that she may be able to discontinue blood pressure medications at some point in the next 1 to 2 months when kidney issue has resolved. (3) Pre-eclampsia affecting puerperium: PLAN: PIH symptoms are resolved. Cardiac echo essentially normal. Work- up for DVT/PE negative. Will discharge to home with routine instructions continuing Norvasc as noted above.
--- NOTE | 2022-01-14 09:13 | PCM.DC ---
Discharge Instructions Diet Discharge Diet: No restrictions Activity Discharge Activity: Return to Normal Activity May resume sexual activity in: 2 weeks Lifting Restrictions: 20 pounds Dressing / Incision Call your doctor if your incision/area has: Continuous Slow Oozing, Sudden Increased Bleeding, Increased Pain/ Swelling, Increased Redness and Foul Smelling Discharge Call your doctor if you observe: Fever of 101 or Higher, Inability to urinate, Inability to have a bowel movement and Using more than 1 pad per hour Follow Up Care Please Follow Up With: Rose Fernandes MD When: Call [phone] for appointment to be seen this Thursday. Test Results: Return to our office for creatinine level this Thursday and for BP check. Discharge Plan Admission Reason For Visit: RULE OUT PRE ECLAMPSIA Attending Provider: Rose Fernandes Discharge Orders/Prescriptions Prescriptions: New amlodipine 5 mg Tablet 5 mg PO DAILY Qty: 30 RF: 6 Continued acetaminophen [Tylenol] 325 mg Tablet 1,000 mg PO Q6H PRN (Reason: Pain) RF: 0 Discontinued oxycodone 5 mg Tablet 5 mg PO Q6H PRN PRN (Reason: Pain Score 7-10) 4 Days Qty: 16 RF: 0 ibuprofen [Motrin] 600 mg Tablet 600 mg PO Q6H PRN (Reason: Pain) RF: 0 Disposition Patient Disposition: Home, Self Care
[2022-01-14] MEDS: amLODIPine 5 MG Tablet PO (11:24)
--- NOTE | 2022-01-14 16:23 | PN.HOSP_ITS ---
Subjective Subjective Patient seen and examined. She had no complaints and had an uneventful night. She said she felt much better. Revew of systems is otherwise negative. BP control is improving. Objective Data Objective Data Vital Signs: Vital Signs Temp Pulse Resp BP Pulse Ox 99.1 F 75 14 131/67 H 95 01/14/22 11:25 01/14/22 12:39 01/14/22 11:25 01/14/22 12:39 01/14/22 11:25 Oxygen Delivery Method Room Air Weight: 266 lb Body Mass Index (BMI) 45.6 Intake & Output: Intake and Output for Last 24 Hours 01/12/22 01/13/22 01/14/22 23:59 23:59 23:59 Intake Total 972.50 / 972.50 3538.758 / 3538.758 400 / 400 Output Total 4400 / 4400 4250 / 4850 1250 / 1250 Balance -3427.50 / -3427.50 -711.242 / -1311.242 -850 / -850 Lab / Micro Data Result Diagrams: 01/14/22 05:40 01/14/22 05:40 Labs: Laboratory Results - last 24 hr 01/14/22 05:40: WBC 9.2, RBC 4.06 L, Hgb 12.3, Hct 37.5, MCV 92.4, MCH 30.3, MCHC 32.8, RDW Std Deviation 49.3 H, RDW Coeff of Zainab 14.5, Plt Count 359, MPV 8.2 01/14/22 05:40: Sodium 141, Potassium 4.2, Chloride 109 H, Carbon Dioxide 25.0, Anion Gap 7, BUN 33 H, Creatinine 2.21 H, Estim Creat Clear Calc 30.10, Est GFR (MDRD) Af Amer 32 L, Est GFR (MDRD) Non-Af 27 L, BUN/Creatinine Ratio 14.9, Glucose 99, Calcium 8.2 L, Total Bilirubin 0.50, AST 21, ALT 46, Alkaline Phosphatase 100, Total Protein 6.5, Albumin 2.3 L, Globulin 4.2, Albumin/Globulin Ratio 0.5 L Physical Exam Const alert, oriented x3 and no apparent distress Exam Limitations: no limitations HEENT head/scalp atraumatic and moist oral mucous membranes Head and Scalp: normocephalic Eyes PERRL, EOMs intact bilaterally and conjunctivae normal Resp normal respiratory effort, no retractions, no use of accessory muscles and clear to auscultation bilaterally Cardio regular rate, regular rhythm, S1 normal heart sound and S2 normal heart sound GI normal to inspection, nondistended, normoactive bowel sounds, soft to palpation, non-tender and non-distended Extremity normal to inspection, full ROM and no clubbing, cyanosis or edema Peripheral Pulses: Yes pulses 2+ throughout Skin no rashes or lesions noted Neuro oriented x3, CN's II-XII intact bilaterally and moves all extremities Sensorium / Orientation: awake and alert Psych affect normal Assessment & Plan Assessment/Plan (1) Hypertension, condition or complication: PLAN: #Post hypertnsion * on amlodipine 5mg daily * BP control is improving * To follow-up with PCP on outpatient basis to determine if medication can be started or otherwise. * #Probable flash pulmonary edema from hypertensive emergency * Patient blood pressure was markedly elevated when she came in and chest imaging showed pulmonary edema * This likely also due to fluid administration as she may have received a significant amount of fluids during the section. * 2D echo showed no evidence of cardiomyopathy. * Patient is now stable. 2D echo showed EF of * #HELENA: Creatinine is 2.21 today. No clear baseline is known. Follow-up with PCP on outpatient basis for monitoring of her creatinine. DVT prophylaxis: As per primary team. On Lovenox Disposition: Patient ok for discharge home today from hospitalist standpoint. Charges/Coding Visit Charges Inpatient E&M: 79442 Subs Hosp L2
== END 2022-01-14 12:40 | disposition home or self-care (01) ==
LOC: WPOUT 01-14 09:32
PROVIDERS: Internal Medicine Critical Care Medicine; Admitting Provider Obstetrics & Gynecology; Visit Provider Obstetrics & Gynecology
DX: O14.95 Unspecified pre-eclampsia, complicating the puerperium (principal); N17.9 Acute kidney failure, unspecified; I16.1 Hypertensive emergency; O24.439 Gestational diabetes mellitus in the puerperium, unspecified control
CPT/HCPCS: 36415; 71275; 80053; 81001; 82565; 82570; 83615; 83735; 83880; 84145; 84156; 84450; 84460; 84540; 84550; 85027; 93306; 94760; 96372; 99218; 99251; J7030; J7120; Q9967; A4216; G0378; G0463; J1940

== ENCOUNTER → 2022-01-17 | Outpatient (CLI) | payer OTHER, SELFPAY ==
[2022-01-17 13:41] LABS: ALB/GLOB Ratio 0.6 RATIO (0.9-2.4); AST(SGOT) 17 U/L (15-37); Alanine Aminotransfer ALT/SGPT 28 U/L (13-56); Albumin, Serum 2.8 g/dL (3.2-5.0); Alkaline Phosphatase 106 U/L (45-117); Anion Gap 7 (5-15); BUN 34 mg/dL (7-18); BUN/Creat Ratio 16.7 RATIO (10-20); Calcium,Total 8.9 mg/dL (8.5-10.1); Chloride 111 mmol/L (98-107); Creatinine, Serum 2.03 mg/dL (0.55-1.02); EST Glomerular Filtration Rate 29 mL/min (>60); Est Glom Filt Rate - Afr Amer 35 mL/min (>60); Globulin 4.5 g/dL (2.2-4.2); Glucose 84 mg/dL (74-106); Potassium 4.6 mmol/L (3.5-5.1); Protein, Total 7.3 g/dL (6.4-8.2); Sodium Level 143 mmol/L (136-145)
== END | disposition home or self-care (01) ==
PROVIDERS: Visit Provider Obstetrics & Gynecology
DX: O14.15 Severe pre-eclampsia, complicating the puerperium (principal); N17.0 Acute kidney failure with tubular necrosis; R74.01 Elevation of levels of liver transaminase levels; O90.4 Postpartum acute kidney failure
CPT/HCPCS: 36415; 80053

== ENCOUNTER → 2022-01-23 | Outpatient (CLI) | payer OTHER, SELFPAY ==
[2022-01-23 11:56] LABS: Creatinine, Serum 1.27 mg/dL (0.55-1.02); EST Glomerular Filtration Rate 50 mL/min (>60); Est Glom Filt Rate - Afr Amer 61 mL/min (>60)
== END | disposition home or self-care (01) ==
LOC: WOBLAB 10:21
PROVIDERS: Visit Provider Obstetrics & Gynecology
DX: O14.15 Severe pre-eclampsia, complicating the puerperium (principal); R74.01 Elevation of levels of liver transaminase levels; Z3A.00 Weeks of gestation of pregnancy not specified
CPT/HCPCS: 36415; 82565